=== PATIENT | female | born 1965 | race Caucasian/White ===

== ENCOUNTER → 2016-12-16 | Outpatient (CLI) | payer OTHER ==
[~2016-12-16] MED LIST: ALBU0.5N2 NEB; ATV/1 PO; CARI350T27 PO; CLON0.5T3 PO; DICY10CA12 PO; FLUT0.15 NAE; IBUP-1428 PO; METO50TA7 PO; MRLP17X PO; OXYC-106 PO; OXYC1TAB3 PO; PANT40TA PO; RANI300T PO; SIMV40TA2 PO; TPRSR/25 PO
--- NOTE | 2016-12-16 10:59 | DIAGNOSTIC IMAGING REPORT ---
BILATERAL CAROTID DOPPLER STUDY HISTORY: D4,I10,R0789 COMPARISON: None. TECHNIQUE: Real-time, grayscale, and color Doppler sonography of the carotid arteries was performed. Imaging reviewed in the transverse and longitudinal planes. All measurements were calculated based on NASCET criteria. FINDINGS: Antegrade flow is seen in the bilateral vertebral arteries. The brachial pressures are hemodynamically similar. The peak systolic velocity within the right ICA is 58. The right systolic ratio is 0.8. The peak systolic velocity within the left ICA is 63. The left systolic ratio is 0.9. IMPRESSION: No hemodynamically significant stenosis seen within the carotid arteries. Electronically signed by: Shen Torres M.D. 12/16/2016 10:57 AM Dictated Date/Time: 12/16/2016 10:54 AM
== END | disposition home or self-care (01) ==
LOC: C.ULTR 09:43
DX: I10 Essential (primary) hypertension (principal); R07.89 Other chest pain

== ENCOUNTER 2016-12-31 17:59 | Emergency (ER) | payer OTHER ==
[~2016-12-31] VITALS: Ht 160 cm; Wt 71.5 kg
[~2016-12-31 17:59] MED LIST changes: -METO50TA7 PO; -OXYC1TAB3 PO
[2016-12-31 18:03] VITALS: TEMP 36.9; Ht 160 cm; Wt 71.5 kg
[2016-12-31] MEDS ORDERED: LORAZEPAM 1 MG TAB SL STA (18:16)
[2016-12-31] MEDS ORDERED: ONDANSETRON INJ 2 MG/ML 2 ML VIAL IV STA (18:16)
[2016-12-31] MEDS ORDERED: SODIUM CHLORIDE 0.9% 1000ML 1,000 ML IV ONE (18:16)
[2016-12-31] MEDS ORDERED: SODIUM CHLORIDE 0.9% 1000ML 1,000 ML IV STA (18:16)
--- NOTE | 2016-12-31 18:21 | EMERGENCY ROOM VISIT NOTE ---
History Report prepared by Damian: Aurelia Durán Under the Supervision of: Dr. Moises Tang M.D. First contact with patient: 18:08 Chief Complaint: ABDOMINAL PAIN Stated Complaint: ABD PAIN,DIARRHEA Nursing Triage Summary: Pt c/o anxiety attack, cramping in stomach, back pain (chronic). N/V/D Began two days. History of Present Illness The patient is a 51 year old female who presents to the Emergency Room with complaints of constant abdominal cramping beginning 2 days ago. The patient states that she has had 4 episodes of diarrhea today that is runny, cough, dryness, nausea, vomiting, and anxiety from her symptoms. She denies any bloody stools, black stools, recent antibiotics or travel, and new urinary symptoms. The patient reports that her granddaughter is throwing up. She notes that she tried drinking Pedialyte. She states that she had a hernia and gallbladder removed previously and states that she has a history of an irregular heartbeat. She's also had some back pain in her lower to thoracic back. She says she strained it. No change in bowel or bladder function or numbness or weakness acutely. Source of History: patient Onset: 2 days ago Position: abdomen Quality: cramping Timing: constant Associated Symptoms: + diarrhea, + nausea, + vomiting, No urinary symptoms Note: The patient states dryness, and anxiety from her symptoms. She denies any bloody stools, black stools, recent antibiotics or travel. Review of Systems See HPI for pertinent positives & negatives. A total of 10 systems reviewed and were otherwise negative. Past Medical & Surgical Medical Problems: (1) Anxiety (2) ASTHMA, UNSPECIFIED (3) Chronic anxiety (4) ESOPHAGEAL REFLUX (5) Tachycardia Old medical records were reviewed. Nurse's notes were reviewed and I agree with. Family History FH: heart disease FHx: cancer Hypertension Social History Smoking Status: Former Smoker Alcohol Use: none Drug Use: none Marital Status: single Housing Status: lives with family Occupation Status: disabled Current/Historical Medications Scheduled Metoprolol Succ (Toprol Xl) (Toprol-Xl), 25 MG PO DAILY Pantoprazole (Protonix), 40 MG PO DAILY Ranitidine Hcl (Zantac), 300 MG PO HS Simvastatin (Zocor), 40 MG PO QPM Scheduled PRN Carisoprodol (Soma), 350 MG PO QID PRN for Pain Ibuprofen (Motrin), 800 MG PO BID PRN for Pain Oxycodone Immediate Rel Tab (Roxicodone Ir), 1-2 TAB PO Q4H PRN for Severe Pain Oxycodone/Acetaminophen 10MG/325MG (Percocet 10MG/325MG), 1 TAB PO TID PRN for Pain Allergies Coded Allergies: No Known Allergies (Unverified , 12/31/16) Physical Exam Vital Signs Date Time Temp Pulse Resp B/P Pulse Ox O2 Delivery O2 Flow Rate FiO2 12/31/16 20:36 64 20 136/83 96 Room Air 12/31/16 19:30 68 20 157/68 96 Room Air 12/31/16 18:03 36.9 67 22 181/82 94 Room Air Physical Exam General: Mildly ill appearing middle aged female, occasionally dry cough. HEENT: Normal cephalic atraumatic. Pupils are equal round and reactive to light. Extraocular movements are intact. Oropharynx is pink with moist mucous membranes. No swelling of the mouth lips or tongue. Neck: Supple with a midline trachea. No meningeal signs or stiffness, no JVD or bruits. No Stridor. Chest: Clear to auscultation bilaterally. No wheezes or rhonchi. No increased work of breathing. Heart: regular rate and rhythm. Abdomen: Nondistended without rebound guarding or rigidity. Minimally diffusely tender non-focal, no peritonitis. Extremities: No cyanosis clubbing or edema. No calf tenderness or assymetry Spine/Back. Non tender to palpation. No CVA tenderness Skin: Good turgor without rashes. Neurologic exam: Cranial nerves two through 12 are intact. Motor and sensation are intact and symmetrical throughout. Medical Decision & Procedures ER Provider Diagnostic Interpretation: X-ray results as stated below per interpretation by me and the radiologist: CHEST ONE VIEW PORTABLE FINDINGS: The cardiac and mediastinal contours are normal. There is no evidence of focal pulmonary consolidation. There is no evidence of failure. No pleural effusions are visualized.[ IMPRESSION: No active disease in the chest. Electronically signed by: Moris Ross M.D. 12/31/2016 7:16 PM Dictated Date/Time: 12/31/2016 7:16 PM Laboratory Results 12/31/16 18:40 Red Blood Count 4.33, Mean Corpuscular Volume 87.8, Mean Corpuscular Hemoglobin 30.0, Mean Corpuscular Hemoglobin Concent 34.2, Mean Platelet Volume 8.9, Neutrophils (%) (Auto) 58.8, Lymphocytes (%) (Auto) 32.3, Monocytes (%) (Auto) 8.0, Eosinophils (%) (Auto) 0.5, Basophils (%) (Auto) 0.2, Neutrophils # (Auto) 5.00, Lymphocytes # (Auto) 2.75, Monocytes # (Auto) 0.68, Eosinophils # (Auto) 0.04, Basophils # (Auto) 0.02 12/31/16 18:40 Test 12/31/16 18:40 12/31/16 18:43 White Blood Count 8.51 K/uL (4.8-10.8) Red Blood Count 4.33 M/uL (4.2-5.4) Hemoglobin 13.0 g/dL (12.0-16.0) Hematocrit 38.0 % (37-47) Mean Corpuscular Volume 87.8 fL (80-100) Mean Corpuscular Hemoglobin 30.0 pg (25-34) Mean Corpuscular Hemoglobin Concent 34.2 g/dl (32-36) Platelet Count 246 K/uL (130-400) Mean Platelet Volume 8.9 fL (7.4-10.4) Neutrophils (%) (Auto) 58.8 % Lymphocytes (%) (Auto) 32.3 % Monocytes (%) (Auto) 8.0 % Eosinophils (%) (Auto) 0.5 % Basophils (%) (Auto) 0.2 % Neutrophils # (Auto) 5.00 K/uL (1.4-6.5) Lymphocytes # (Auto) 2.75 K/uL (1.2-3.4) Monocytes # (Auto) 0.68 K/uL (0.11-0.59) Eosinophils # (Auto) 0.04 K/uL (0-0.5) Basophils # (Auto) 0.02 K/uL (0-0.2) RDW Standard Deviation 44.2 fL (36.4-46.3) RDW Coefficient of Variation 13.8 % (11.5-14.5) Immature Granulocyte % (Auto) 0.2 % Immature Granulocyte # (Auto) 0.02 K/uL (0.00-0.02) Anion Gap 11.0 mmol/L (3-11) Est Creatinine Clear Calc Drug Dose 80.0 ml/min Estimated GFR () 101.3 Estimated GFR (Non- 87.4 BUN/Creatinine Ratio 9.7 (10-20) Calcium Level 8.9 mg/dl (8.5-10.1) Total Bilirubin 0.2 mg/dl (0.2-1) Direct Bilirubin < 0.1 mg/dl (0-0.2) Aspartate Amino Transf (AST/SGOT) 12 U/L (15-37) Alanine Aminotransferase (ALT/SGPT) 29 U/L (12-78) Alkaline Phosphatase 111 U/L (45-117) Total Protein 7.1 gm/dl (6.4-8.2) Albumin 3.5 gm/dl (3.4-5.0) Lipase 338 U/L (73-393) Human Chorionic Gonadotropin, Qual NEG (NEG) Bedside Troponin I 0.000 ng/ml (0-0.045) Laboratory studies as stated above per my review. Medications Administered Medications (Trade) Dose Ordered Sig/Cordelia Route Start Time Stop Time Status Last Admin Dose Admin Sodium Chloride 1,000 ml @ 999 mls/hr Q1H1M STAT IV 12/31/16 18:16 12/31/16 19:16 DC 12/31/16 18:42 999 MLS/HR Sodium Chloride (Nss 1000ml) 1,000 ml @ 200 mls/hr Q5H ONCE IV 12/31/16 18:16 12/31/16 21:24 DC 12/31/16 18:42 200 MLS/HR Ondansetron HCl (Zofran Inj) 4 mg NOW STAT IV 12/31/16 18:16 12/31/16 18:19 DC 12/31/16 18:42 4 MG Lorazepam (Ativan Tab) 1 mg NOW STAT SL 12/31/16 18:16 12/31/16 18:19 DC 12/31/16 18:42 1 MG Ketorolac Tromethamine (Toradol Inj) 30 mg NOW STAT IV 12/31/16 19:26 12/31/16 19:28 DC 12/31/16 19:40 30 MG Oxycodone HCl (Roxicodone Immediate Rel 5MG Home Pack) 1 homepack UD ONCE PO 12/31/16 20:00 12/31/16 20:01 DC 12/31/16 20:33 1 HOMEPACK ECG Indication: other (cardiac history) Rate (beats per minute): 59 Rhythm: sinus bradycardia Findings: no acute ischemic change, no ectopy, other (poor baseline) Comparison ECG Date: 01/06/14 Change: no significant change ED Course 1808: Past medical records reviewed. The patient was evaluated in room B9, and a complete history and physical examination were performed. 1815: Ativan Tab 1mg SL, Zofran Inj 4mg IV, Sodium Chloride 1000 ml @ 200 mls/ hr IV, Sodium Chloride 1000 ml @ 999 mls/hr IV. 1925: Toradol Inj 30mg IV. 1999: Oxycodone HCl 1 homepack PO. 2007: I reevaluated the patient. 2014: Oxycodone HCl 1 homepack PO. 2019: Upon reevaluation, the patient is hemodynamically stable. I discussed the results and treatment plan with the patient. She verbalized agreement of the treatment plan. The patient was discharged home. Medical Decision Differential Diagnoses include diarrhea, dehydration, anxiety, arrhythmia, electrolyte or metabolic abnormality. This patient comes in as described above. She was placed in room B9. She is here for treatment and evaluation of abdominal pain and diarrhea and anxiety. Her abdomen is minimally diffusely tender. She feels she's anxious. She's had no recent travel or antibiotic use. IV access established he was hydrated with IV normal saline. She was given IV Zofran for nausea as well as Ativan by mouth. EKG, chest x-ray ,multiple blood testing was obtained. She was reassessed frequently. She was given Toradol 30 mg IV for pain. She has no fever or white count to suggest infection. She's had no acute electrolyte or metabolic abnormalities. She has nothing to suggest liver, gallbladder, or pancreas disease. EKG and x-ray were unremarkable. She has no neurologic deficits. I think that her symptoms are related to her diarrhea and anxiety and she may have some exacerbation of her back pain. I will give her some pain pills that she can use at home with OxyIR 5 mg, one or 2 pills every 4-6 hours as needed. She was warned that this can make her drowsy -do not take before drinking, driving, working , she should return if numbness, weakness, fever chills, change in bowel or bladder function, any problems concerns. She is happy with plan and discharged home. She should follow up with her doctor on Monday for recheck. Impression Primary Impression: Back pain Additional Impressions: Diarrhea Anxiety Scribe Attestation The scribe's documentation has been prepared under my direction and personally reviewed by me in its entirety. I confirm that the note above accurately reflects all work, treatment, procedures, and medical decision making performed by me. Departure Information Dispostion Home / Self-Care Prescriptions Oxycodone Immediate Rel Tab (ROXICODONE IR) 5 Mg Tab 1-2 TAB PO Q4H Y for Severe Pain, #14 TAB Prov: Moises Tang M.D. 12/31/16 Referrals No Doctor, Assigned (PCP) Forms Call Back Authorization, HOME CARE DOCUMENTATION FORM, IMPORTANT VISIT INFORMATION Patient Instructions My [facility] Additional Instructions Rest. Drink plenty of fluids. May use OxyIR 5 mg, one or 2 pills every 4-6 hours if needed for pain OxyIR may make you drowsy and do not take before drinking, driving, working Do not take OxyIR with any other narcotic/pain medications May use Imodium if needed for diarrhea Return if: Increasing pain, numbness or weakness, worsening of symptoms, fever chills, any problems concerns. Follow-up with your doctor on Monday for recheck. Problem Qualifiers
[2016-12-31] MEDS ORDERED: METO50TA7 PO (18:37)
[2016-12-31 18:49] LABS: BASO % 0.2 %; BASO ABS # 0.02 K/uL (0-0.2); COMPLETE YES; EOS % 0.5 %; IG% 0.2 %; LYMPH % 32.3 %; LYMPH ABS # 2.75 K/uL (1.2-3.4); MEAN CELL VOLUME 87.8 fL (80-100); MEAN CORPUSCULAR HGB CONC 34.2 g/dl (32-36); MEAN PLATELET VOLUME 8.9 fL (7.4-10.4); NEUT % 58.8 %; PLATELET COUNT 246 K/uL (130-400); RED BLOOD COUNT 4.33 M/uL (4.2-5.4); WHITE BLOOD COUNT 8.51 K/uL (4.8-10.8)
[2016-12-31 19:05] LABS: ALT/SGPT 29 U/L (12-78); AST/SGOT 12 U/L (15-37); BLOOD UREA NITROGEN 8 mg/dl (7-18); BUN/CREATININE RATIO 9.7 (10-20); CALCIUM 8.9 mg/dl (8.5-10.1); CARBON DIOXIDE 25 mmol/L (21-32); CHLORIDE 109 mmol/L (98-107); CREATININE 0.78 mg/dl (0.60-1.20); GLUCOSE 96 mg/dl (70-99); POTASSIUM 3.7 mmol/L (3.5-5.1); SODIUM 145 mmol/L (136-145)
[2016-12-31 19:08] LABS: ALKALINE PHOSPHATASE 111 U/L (45-117)
[2016-12-31 19:12] LABS: PREG INTERNAL NEGATIVE QC NEG CLEAR BACKGROUND; PREG INTERNAL POSITIVE QC POS CONTROL LINE
--- NOTE | 2016-12-31 19:17 | DIAGNOSTIC IMAGING REPORT ---
CHEST ONE VIEW PORTABLE CLINICAL HISTORY: Atypical chest pain COMPARISON STUDY: 10/25/2016 FINDINGS: The cardiac and mediastinal contours are normal. There is no evidence of focal pulmonary consolidation. There is no evidence of failure. No pleural effusions are visualized.[ IMPRESSION: No active disease in the chest. Electronically signed by: Moris Ross M.D. 12/31/2016 7:16 PM Dictated Date/Time: 12/31/2016 7:16 PM
[2016-12-31] MEDS ORDERED: KETOROLAC TROMETHAMINE 30 MG/ML VIAL IV STA (19:26)
[2016-12-31] MEDS ORDERED: OXYCODONE IR HOME PACK PO ONE ×2 (20:00→20:15)
[2016-12-31] MEDS ORDERED: OXYC1TAB3 PO (20:01)
[2016-12-31 20:36] VITALS: BP 136/83; PULSE 64; O2SAT 96
== END 2016-12-31 20:48 | disposition home or self-care (01) ==
LOC: C.EDB 18:01
DX: M54.9 Dorsalgia, unspecified (principal); R19.7 Diarrhea, unspecified; F41.9 Anxiety disorder, unspecified; J45.909 Unspecified asthma, uncomplicated; K21.9 Gastro-esophageal reflux disease without esophagitis; R00.0 Tachycardia, unspecified; Z87.891 Personal history of nicotine dependence; Z82.49 Family history of ischemic heart disease and other diseases of the circulatory system; Z80.9 Family history of malignant neoplasm, unspecified; Z79.899 Other long term (current) drug therapy

== ENCOUNTER 2017-01-29 09:32 | Emergency (ER) | payer OTHER ==
[~2017-01-29 09:32] MED LIST changes: -ALBU0.5N2 NEB; -ATV/1 PO; -CLON0.5T3 PO; -DICY10CA12 PO; -FLUT0.15 NAE; +METO50TA7 PO; -MRLP17X PO; +OXYC1TAB3 PO; -TPRSR/25 PO
[2017-01-29 09:40] VITALS: TEMP 36.4; Ht 160 cm
[2017-01-29] MEDS ORDERED: SODIUM CHLORIDE 0.9% 1000ML 1,000 ML IV ONE (09:59)
[2017-01-29] MEDS ORDERED: MoRPHine SULFATE 4 MG/ML 1 ML CARP\\VIAL IV STA ×3 (09:59→13:40)
[2017-01-29] MEDS ORDERED: SODIUM CHLORIDE 0.9% 1000ML 1,000 ML IV STA (09:59)
[2017-01-29] MEDS ORDERED: ONDANSETRON INJ 2 MG/ML 2 ML VIAL IV STA ×2 (09:59→14:17)
--- NOTE | 2017-01-29 10:07 | EMERGENCY ROOM VISIT NOTE ---
History Report prepared by Damian: Oralia Lunsford Under the Supervision of: Dr. Moises Tang M.D. First contact with patient: 09:53 Chief Complaint: ABDOMINAL PAIN Stated Complaint: NOT SLEEPING, STOMACH PAIN Nursing Triage Summary: pt here with abd pains, n/v/d. pt states has been going on for a long time. hx of abd adhesions per pt. pt states cannot swallow anything for days History of Present Illness The patient is a 51 year old female who presents to the Emergency Room with complaints of worsening abdominal pain. The patient states that she has had the abdominal pain for a long time. She rates her pain as a 10/10. The patient states that she has not been able to eat or swallow and that she has lost two pounds. She has been drinking water. The patient has had previous abdominal surgeries to remove her gallbladder and adhesions. The patient states that she has a history of anxiety and that she is having increased anxiety due to the abdominal pain. She is having some shortness of breath. She denies fever, urinary symptoms, chest pain. Source of History: patient Onset: chronic Position: abdomen Symptom Intensity: 10/10 Quality: other (abdominal pain) Timing: worsening Associated Symptoms: + SOB, No chest pain, No fevers, No urinary symptoms Note: She is having increased anxiety. Review of Systems See HPI for pertinent positives & negatives. A total of 10 systems reviewed and were otherwise negative. Past Medical & Surgical Medical Problems: (1) Anxiety (2) ASTHMA, UNSPECIFIED (3) Chronic anxiety (4) ESOPHAGEAL REFLUX (5) Tachycardia Old medical records were reviewed. Nurse's notes were reviewed and I agree with. Family History FH: heart disease FHx: cancer Hypertension Social History Smoking Status: Former Smoker Alcohol Use: none Drug Use: none Marital Status: single Housing Status: lives with family Occupation Status: disabled Current/Historical Medications Scheduled Metoprolol Succ (Toprol Xl) (Toprol-Xl), 25 MG PO DAILY Pantoprazole (Protonix), 40 MG PO DAILY Ranitidine Hcl (Zantac), 300 MG PO HS Simvastatin (Zocor), 40 MG PO QPM Scheduled PRN Carisoprodol (Soma), 350 MG PO QID PRN for Pain Ibuprofen (Motrin), 800 MG PO BID PRN for Pain Oxycodone Immediate Rel Tab (Roxicodone Ir), 1-2 TAB PO Q4H PRN for Severe Pain Allergies Coded Allergies: No Known Allergies (Unverified , 01/29/17) Physical Exam Vital Signs Date Time Temp Pulse Resp B/P Pulse Ox O2 Delivery O2 Flow Rate FiO2 01/29/17 14:35 60 16 125/72 99 Room Air 01/29/17 10:38 65 26 137/87 99 Room Air 01/29/17 09:40 36.4 76 16 153/92 98 Room Air Physical Exam General: Anxious appearing middle age female complaining of abdominal pain. HEENT: Normal cephalic atraumatic. Pupils are equal round and reactive to light. Sclerae anicteric. Extraocular movements are intact. Oropharynx is pink with moist mucous membranes. No swelling of the mouth lips or tongue. Neck: Supple with a midline trachea. No meningeal signs or stiffness, no JVD or bruits. No Stridor. Chest: Clear to auscultation bilaterally. No wheezes or rhonchi. No increased work of breathing. Heart: regular rate and rhythm. Abdomen: Soft, minimally diffusely tender, nondistended without rebound guarding or rigidity. Extremities: No cyanosis clubbing or edema. No calf tenderness or assymetry Spine/Back. Non tender to palpation. No CVA tenderness Skin: Good turgor without rashes. Neurologic exam: Cranial nerves two through 12 are intact. Motor and sensation are intact and symmetrical throughout. Medical Decision & Procedures ER Provider Diagnostic Interpretation: CT results as stated below per my review and radiologist interpretation: CT OF THE ABDOMEN AND PELVIS WITH CONTRAST CLINICAL HISTORY: Abdominal pain. COMPARISON STUDY: CT of the abdomen and pelvis April 18, 2013. TECHNIQUE: Following IV administration of 92 mL of Optiray-320, axial images of the abdomen and pelvis were obtained from the lung bases to the proximal femurs. Images were reviewed in the axial, sagittal, and coronal planes. IV contrast was administered without complication. CT DOSE: 405.46 mGy.cm FINDINGS: Fatty infiltration of the liver is noted. Biliary ductal dilatation is unchanged since CT of April 18, 2013 and likely due to prior cholecystectomy. There is no peripancreatic infiltration. The spleen, adrenal glands and kidneys are normal. There is no hydronephrosis. Caliber and wall thickness of small and large bowel are normal. There is a suspected right upper quadrant hernia mesh. The appendix is normal. There is colonic diverticulosis without evidence for acute diverticulitis. Skeletal structures are unremarkable. IMPRESSION: 1. No acute process within the abdomen or pelvis. 2. No change in biliary ductal dilatation since CT of April 18, 2013. This is likely related to prior cholecystectomy but could be correlated with obstructive liver function tests. 3. Fatty liver. 4. Colonic diverticulosis without evidence for acute diverticulitis. Electronically signed by: Geovany Lopez M.D. 01/29/2017 11:24 AM Dictated Date/Time: 01/29/2017 11:17 AM Laboratory Results 01/29/17 09:55 Red Blood Count 4.64, Mean Corpuscular Volume 89.9, Mean Corpuscular Hemoglobin 31.0, Mean Corpuscular Hemoglobin Concent 34.5, Mean Platelet Volume 9.1, Neutrophils (%) (Auto) 73.3, Lymphocytes (%) (Auto) 20.4, Monocytes (%) (Auto) 5.8, Eosinophils (%) (Auto) 0.1, Basophils (%) (Auto) 0.2, Neutrophils # (Auto) 6.95, Lymphocytes # (Auto) 1.93, Monocytes # (Auto) 0.55, Eosinophils # (Auto) 0.01, Basophils # (Auto) 0.02 01/29/17 09:55 Test 01/29/17 09:50 01/29/17 09:55 01/29/17 10:05 Urine Color YELLOW Urine Appearance CLEAR (CLEAR) Urine pH 7.0 (4.5-7.5) Urine Specific [place] 1.004 (1.000-1.030) Urine Protein NEG (NEG) Urine Glucose (UA) NEG (NEG) Urine Ketones NEG (NEG) Urine Occult Blood TRACE (NEG) Urine Nitrite NEG (NEG) Urine Bilirubin NEG (NEG) Urine Urobilinogen NEG (NEG) Urine Leukocyte Esterase LARGE (NEG) Urine WBC (Auto) 10-30 /hpf (0-5) Urine RBC (Auto) 0-4 /hpf (0-4) Urine Hyaline Casts (Auto) 1-5 /lpf (0-5) Urine Epithelial Cells (Auto) 10-20 /lpf (0-5) Urine Bacteria (Auto) 1+ (NEG) Urine Renal Epithelial Cells 10-20 /lpf (0-5) White Blood Count 9.48 K/uL (4.8-10.8) Red Blood Count 4.64 M/uL (4.2-5.4) Hemoglobin 14.4 g/dL (12.0-16.0) Hematocrit 41.7 % (37-47) Mean Corpuscular Volume 89.9 fL (80-100) Mean Corpuscular Hemoglobin 31.0 pg (25-34) Mean Corpuscular Hemoglobin Concent 34.5 g/dl (32-36) Platelet Count 254 K/uL (130-400) Mean Platelet Volume 9.1 fL (7.4-10.4) Neutrophils (%) (Auto) 73.3 % Lymphocytes (%) (Auto) 20.4 % Monocytes (%) (Auto) 5.8 % Eosinophils (%) (Auto) 0.1 % Basophils (%) (Auto) 0.2 % Neutrophils # (Auto) 6.95 K/uL (1.4-6.5) Lymphocytes # (Auto) 1.93 K/uL (1.2-3.4) Monocytes # (Auto) 0.55 K/uL (0.11-0.59) Eosinophils # (Auto) 0.01 K/uL (0-0.5) Basophils # (Auto) 0.02 K/uL (0-0.2) RDW Standard Deviation 44.2 fL (36.4-46.3) RDW Coefficient of Variation 13.4 % (11.5-14.5) Immature Granulocyte % (Auto) 0.2 % Immature Granulocyte # (Auto) 0.02 K/uL (0.00-0.02) Anion Gap 11.0 mmol/L (3-11) Estimated GFR () 77.8 Estimated GFR (Non- 67.2 BUN/Creatinine Ratio 8.3 (10-20) Calcium Level 9.0 mg/dl (8.5-10.1) Total Bilirubin 0.3 mg/dl (0.2-1) Direct Bilirubin < 0.1 mg/dl (0-0.2) Aspartate Amino Transf (AST/SGOT) 22 U/L (15-37) Alanine Aminotransferase (ALT/SGPT) 30 U/L (12-78) Alkaline Phosphatase 124 U/L (45-117) Total Protein 7.9 gm/dl (6.4-8.2) Albumin 3.9 gm/dl (3.4-5.0) Lipase 236 U/L (73-393) Bedside Troponin I 0.000 ng/ml (0-0.045) Date/Time Source Procedure Growth Status 01/29/17 09:50 Stool C.difficile Toxin B Gene (PCR) - Final No C. difficile toxin B gene detected Complete Laboratory studies as stated above per my review. Medications Administered Medications (Trade) Dose Ordered Sig/[place] Route Start Time Stop Time Status Last Admin Dose Admin Sodium Chloride 1,000 ml @ 999 mls/hr Q1H1M STAT IV 01/29/17 09:59 01/29/17 10:59 DC 01/29/17 10:08 999 MLS/HR Sodium Chloride (Nss 1000ml) 1,000 ml @ 150 mls/hr Q6H40M ONCE IV 01/29/17 09:59 01/29/17 16:38 01/29/17 10:35 150 MLS/HR Morphine Sulfate (MoRPHine SULFATE INJ) 4 mg NOW STAT IV 01/29/17 09:59 01/29/17 10:01 DC 01/29/17 10:08 4 MG Ondansetron HCl (Zofran Inj) 4 mg NOW STAT IV 01/29/17 09:59 01/29/17 10:01 DC 01/29/17 10:08 4 MG Lorazepam (Ativan Tab) 1 mg NOW STAT SL 01/29/17 10:50 01/29/17 10:51 DC 01/29/17 10:53 1 MG Morphine Sulfate (MoRPHine SULFATE INJ) 4 mg NOW STAT IV 01/29/17 12:11 01/29/17 12:12 DC 01/29/17 12:50 4 MG Morphine Sulfate (MoRPHine SULFATE INJ) 4 mg NOW STAT IV 01/29/17 13:40 01/29/17 13:42 DC 01/29/17 14:28 4 MG Ondansetron HCl (Zofran Inj) 4 mg NOW STAT IV 01/29/17 14:17 01/29/17 14:18 DC 01/29/17 14:27 4 MG Ondansetron HCl (ZOFRAN ODT 4MG Home Pack) 1 homepack UD ONCE PO 01/29/17 14:45 01/29/17 14:46 DC 01/29/17 14:53 1 HOMEPACK ECG Indication: abdominal pain Rate (beats per minute): 64 Rhythm: normal sinus Findings: no acute ischemic change, other (LVH) Comparison ECG Date: 12/31/2016 Change: no significant change ED Course 0955: Past medical records reviewed. The patient was evaluated in room B2, and a complete history and physical examination were performed. 0959: Zofran 4 mg IV, Morphine Sulfate 4 mg IV, Sodium Chloride 1000 ml @ 150 mls/hr IV, Sodium Chloride 1000 ml @ 999 mls/hr IV 1048: I reevaluated the patient. She states that she ran out of Ativan several days ago. She still feels anxious. 1050: Ativan tab 1 mg SL 1211: Morphine Sulfate 4 mg IV 1340: Morphine Sulfate 4 mg IV 1343: I reevaluated the patient. She is feeling better and has an appointment with her doctor tomorrow. I discussed the results and treatment plan with the patient. She verbalized agreement of the treatment plan. The patient was discharged home. 1416: Per nursing staff, the patient would like something more for nausea. 1417: Zofran 4 mg IV Medical Decision Differentials include, but are not limited to; Anxiety, bowel obstruction, adhesion, electrolyte or metabolic abnormality, cardiac disease, infection. This patient comes in as described above. She has had abdominal pain as well as nausea vomiting diarrhea. These symptoms all been on going on chronically. She is also very anxious. She takes chronic OxyIR and lorazepam. IV access was established and she was hydrated with IV normal saline. Multiple blood testing was obtained. She's had no fever or white count to suggest infection. She's had no acute electrode or metabolic abnormalities. She has nothing to suggest acute liver, gallbladder, or pancreas disease. She has nothing to suggest cardiac disease. EKG was unremarkable. CAT scan of her abdomen was unremarkable. I have reinterviewed the prescription drug monitoring program and she does receive mildly prescriptions of oxycodone and lorazepam for her regular doctor . she is actually seeing her doctor tomorrow. She was given IV morphine for pain here and was feeling better she was also given IV Zofran for nausea. She will be sent home with a Zofran home pack. She will not get any narcotics to go home from here, she needs to get these from her regular doctor. Her symptoms have been going on for a while and she may benefit from a GI consultation or upper GI scoping. She will be discharged to home. She should return if: increasing pain, fever or chills, worsening of symptoms, any new problems or concerns [place] Drug [place] Program Search Results: patient reviewed within database Drug Monitoring Findings: The patient's prescriptions of oxycodone and Ativan are refilled on the of each month. Impression Primary Impression: Central abdominal pain Additional Impression: Nausea vomiting and diarrhea Scribe Attestation The scribe's documentation has been prepared under my direction and personally reviewed by me in its entirety. I confirm that the note above accurately reflects all work, treatment, procedures, and medical decision making performed by me. Departure Information Dispostion Home / Self-Care Referrals Lorna Dill.Elisha PA-C (PCP) Forms Call Back Authorization, HOME CARE DOCUMENTATION FORM, IMPORTANT VISIT INFORMATION Patient Instructions My [facility] Additional Instructions Rest. Drink plenty of fluids. Mild diet. Keep your appointment with your doctor tomorrow Return if: Increasing pain, worsening of symptoms, fever or chills, any new problems or concerns Problem Qualifiers
[2017-01-29 10:15] LABS: BASO % 0.2 %; BASO ABS # 0.02 K/uL (0-0.2); COMPLETE YES; EOS % 0.1 %; HEMATOCRIT 41.7 % (37-47); IG% 0.2 %; LYMPH % 20.4 %; LYMPH ABS # 1.93 K/uL (1.2-3.4); MEAN CELL VOLUME 89.9 fL (80-100); MEAN CORPUSCULAR HGB CONC 34.5 g/dl (32-36); MEAN PLATELET VOLUME 9.1 fL (7.4-10.4); MONO % 5.8 %; NEUT % 73.3 %; PLATELET COUNT 254 K/uL (130-400); RED BLOOD COUNT 4.64 M/uL (4.2-5.4); WHITE BLOOD COUNT 9.48 K/uL (4.8-10.8)
[2017-01-29] MEDS ORDERED: OPTIRAY 320 IV PRN (10:30)
[2017-01-29 10:33] LABS: BLOOD UREA NITROGEN 8 mg/dl (7-18); BUN/CREATININE RATIO 8.3 (10-20); CARBON DIOXIDE 24 mmol/L (21-32); CHLORIDE 108 mmol/L (98-107); CREATININE 0.97 mg/dl (0.60-1.20); GLUCOSE 123 mg/dl (70-99); POTASSIUM 3.4 mmol/L (3.5-5.1); SODIUM 143 mmol/L (136-145)
[2017-01-29 10:38] LABS: URINE APPEARANCE CLEAR (CLEAR); URINE BILIRUBIN NEG (NEG); URINE COLOR YELLOW; URINE NITRITE NEG (NEG); URINE SPECIFIC GRAVITY 1.004 (1.000-1.030); UROBILINOGEN NEG (NEG)
[2017-01-29 10:42] LABS: ALKALINE PHOSPHATASE 124 U/L (45-117); ALT/SGPT 30 U/L (12-78); AST/SGOT 22 U/L (15-37)
[2017-01-29 10:43] LABS: MANUAL MICROSCOPIC REQUIRED? NO; REVIEW REQ? YES
[2017-01-29] MEDS ORDERED: LORAZEPAM 1 MG TAB SL STA (10:50)
--- NOTE | 2017-01-29 11:25 | DIAGNOSTIC IMAGING REPORT ---
CT OF THE ABDOMEN AND PELVIS WITH CONTRAST CLINICAL HISTORY: Abdominal pain. COMPARISON STUDY: CT of the abdomen and pelvis April 18, 2013. TECHNIQUE: Following IV administration of 92 mL of Optiray-320, axial images of the abdomen and pelvis were obtained from the lung bases to the proximal femurs. Images were reviewed in the axial, sagittal, and coronal planes. IV contrast was administered without complication. CT DOSE: 405.46 mGy.cm FINDINGS: Fatty infiltration of the liver is noted. Biliary ductal dilatation is unchanged since CT of April 18, 2013 and likely due to prior cholecystectomy. There is no peripancreatic infiltration. The spleen, adrenal glands and kidneys are normal. There is no hydronephrosis. Caliber and wall thickness of small and large bowel are normal. There is a suspected right upper quadrant hernia mesh. The appendix is normal. There is colonic diverticulosis without evidence for acute diverticulitis. Skeletal structures are unremarkable. IMPRESSION: 1. No acute process within the abdomen or pelvis. 2. No change in biliary ductal dilatation since CT of April 18, 2013. This is likely related to prior cholecystectomy but could be correlated with obstructive liver function tests. 3. Fatty liver. 4. Colonic diverticulosis without evidence for acute diverticulitis. Electronically signed by: Geovany Lopez M.D. 01/29/2017 11:24 AM Dictated Date/Time: 01/29/2017 11:17 AM
[2017-01-29 14:35] VITALS: BP 125/72; PULSE 60; O2SAT 99
[2017-01-29] MEDS ORDERED: ONDANSETRON HOME PACK 4MG OD TAB PO ONE (14:45)
--- NOTE | 2017-01-31 16:24 | Pharmacy Progress Note ---
ED Pharmacist Culture FollowUp Date of Service: Jan 31, 2017. Lactobacillus growing from the patient's urine culture. Patient denied urinary symptoms. UA with moderate amount of epithelial cells. Lactobacillus likely a contaminant - no intervention required.
== END 2017-01-29 15:02 | disposition home or self-care (01) ==
LOC: C.EDB 09:33
DX: R10.9 Unspecified abdominal pain (principal); R11.2 Nausea with vomiting, unspecified; R19.7 Diarrhea, unspecified; F41.9 Anxiety disorder, unspecified; K21.9 Gastro-esophageal reflux disease without esophagitis; Z87.891 Personal history of nicotine dependence; Z79.899 Other long term (current) drug therapy; Z82.49 Family history of ischemic heart disease and other diseases of the circulatory system; Z80.9 Family history of malignant neoplasm, unspecified

== ENCOUNTER → 2017-02-09 | Outpatient (CLI) | payer OTHER ==
[~2017-02-09] MED LIST changes: -OXYC-106 PO
[2017-02-09 15:35] LABS: HEMATOCRIT 39.2 % (37-47); MEAN CELL VOLUME 89.5 fL (80-100); MEAN CORPUSCULAR HEMOGLOBIN 31.1 pg (25-34); MEAN CORPUSCULAR HGB CONC 34.7 g/dl (32-36); MEAN PLATELET VOLUME 9.2 fL (7.4-10.4); PLATELET COUNT 281 K/uL (130-400); RED BLOOD COUNT 4.38 M/uL (4.2-5.4); WHITE BLOOD COUNT 8.87 K/uL (4.8-10.8)
[2017-02-09 16:12] LABS: ALT/SGPT 33 U/L (12-78); AST/SGOT 17 U/L (15-37); BLOOD UREA NITROGEN 11 mg/dl (7-18); BUN/CREATININE RATIO 13.6 (10-20); CARBON DIOXIDE 25 mmol/L (21-32); CHLORIDE 107 mmol/L (98-107); GLUCOSE 92 mg/dl (70-99); POTASSIUM 3.9 mmol/L (3.5-5.1); SODIUM 142 mmol/L (136-145); TRIGLYCERIDES 231 mg/dl (0-150); VERY LOW DENSITY LIPOPROT CALC 46 mg/dl
[2017-02-09 16:20] LABS: ALKALINE PHOSPHATASE 121 U/L (45-117); CHOLESTEROL 202 mg/dl (0-200); CHOLESTEROL/HDL RATIO 3.5; HDL CHOLESTEROL 57 mg/dl; LDL CHOLESTEROL CALCULATED 99 mg/dl
[2017-02-10 06:18] LABS: ESTIMATED AVERAGE GLUCOSE 108 mg/dl
[2017-02-13 11:05] LABS: HA1C FLAG Variant Hgb (Normal)
== END | disposition home or self-care (01) ==
LOC: C.LAB1850 14:07
PROVIDERS: ATTEND Physician Assistant
DX: K20.9 Esophagitis, unspecified (principal); G44.201 Tension-type headache, unspecified, intractable; R73.01 Impaired fasting glucose; E66.9 Obesity, unspecified

== ENCOUNTER → 2017-02-15 | Outpatient (CLI) | payer OTHER ==
--- NOTE | 2017-02-15 11:49 | DIAGNOSTIC IMAGING REPORT ---
UPPER GI SERIES AND SMALL BOWEL FOLLOW-THROUGH CLINICAL HISTORY: Epigastric pain and vomiting. Acid reflux disease. COMPARISON STUDY: CT of the abdomen and pelvis January 29, 2017 and upper GI series and barium swallow March 14, 2014. FLUOROSCOPY TIME: 2.5 minutes. FINDINGS: 35 fluoroscopic images were obtained. Esophageal motility was normal. No esophageal mass or stricture was identified. There was no gastroesophageal reflux elicited on this exam. Gastric fold pattern was normal. Duodenum was unremarkable. Jejunal and ileal fold patterns were normal. There is no evidence for a small bowel obstruction. Transit time to the cecum was normal at 50 minutes. Terminal ileum was normal. There is left colon diverticulosis. IMPRESSION: Unremarkable upper GI series and small bowel follow-through. Electronically signed by: Geovany Lopez M.D. 02/15/2017 11:47 AM Dictated Date/Time: 02/15/2017 11:45 AM
== END | disposition home or self-care (01) ==
LOC: C.RAD 09:21
PROVIDERS: ATTEND Registered Nurse
DX: R14.0 Abdominal distension (gaseous) (principal); R10.9 Unspecified abdominal pain; K21.9 Gastro-esophageal reflux disease without esophagitis; R11.2 Nausea with vomiting, unspecified

== ENCOUNTER → 2017-05-02 | Outpatient (CLI) | payer OTHER ==
--- NOTE | 2017-05-02 15:57 | DIAGNOSTIC IMAGING REPORT ---
L-SPINE MIN 4 VIEWS ROUTINE CLINICAL HISTORY: Lower back pain. COMPARISON: Lumbar spine radiographs August 16, 2016. FINDINGS: Interval note is made of cholecystectomy clips. No acute fracture is identified. Mild multilevel degenerative disc disease and facet arthrosis is noted. There is no suspicious osseous lesion. IMPRESSION: 1. No acute fracture. 2. Mild multilevel degenerative disc disease. Electronically signed by: Geovany Lopez M.D. 05/02/2017 3:56 PM Dictated Date/Time: 05/02/2017 3:53 PM
== END | disposition home or self-care (01) ==
LOC: C.RAD 13:55
DX: M54.9 Dorsalgia, unspecified (principal)

== ENCOUNTER → 2017-06-27 | Outpatient (CLI) | payer OTHER ==
--- NOTE | 2017-06-27 13:52 | DIAGNOSTIC IMAGING REPORT ---
MRI OF THE LUMBAR SPINE WITHOUT IV CONTRAST CLINICAL HISTORY: Low back pain. COMPARISON STUDY: Radiographs of the lumbar spine dated 05/02/2017. Abdominal CT dated 01/29/2017. MRI of the lumbar spine dated 09/20/2012. TECHNIQUE: MRI of the lumbar spine is performed utilizing various T1 and T2-weighted sequences in the axial and sagittal planes. IV contrast was not administered for this examination. Lumbar spine: A hemitransitional lumbosacral segment will be labeled as S1 for the purposes of this examination. Vertebral body height and alignment are maintained throughout the lumbar spine. There is mild straightening of the lumbar lordosis. There is no evidence of spondylolysis. The transverse and spinous processes appear intact. No destructive bony lesion is seen. Intervertebral discs: Mild degenerative disc desiccation is seen throughout the lumbar spine. Mild loss of height is seen at L4-L5. The remaining disc spaces appear preserved. Spinal cord: The visualized spinal cord is normal in morphology and signal intensity. The conus medullaris terminates at the level of L1. The nerve roots of the cauda equina are normal in morphology. L1-L2: Unremarkable. L2-L3: Unremarkable. L3-L4: There is minimal disc bulge. The central canal and neural foramina are widely patent. L4-L5: There is a small disc bulge. There is no significant acquired compromise of the central canal or neural foramina. L5-S1: There is a small posterior disc bulge and annular fissure. The central canal and neural foramina are widely patent. Mild facet arthropathy is of no consequence. S1-S2: The central canal and neural foramina are widely patent. IMPRESSION: 1. There is no disc herniation, significant central canal stenosis, or neural foraminal narrowing seen throughout the lumbosacral spine. 2. Mild degenerative disc disease as above. This is similar to the 2012 examination. 3. No destructive bony lesion is identified. Dictated: 06/27/2017 1:25 PM Transcribed: 06/27/2017 1:52 PM ALEX_Brenna Electronically signed by: Prashanth Soler M.D. 06/27/2017 1:58 PM Dictated Date/Time: 06/27/2017 1:25 PM
[2017-06-27 14:25] LABS: HEMATOCRIT 38.4 % (37-47); MEAN CELL VOLUME 86.9 fL (80-100); MEAN CORPUSCULAR HEMOGLOBIN 30.1 pg (25-34); MEAN CORPUSCULAR HGB CONC 34.6 g/dl (32-36); MEAN PLATELET VOLUME 9.2 fL (7.4-10.4); PLATELET COUNT 259 K/uL (130-400); RED BLOOD COUNT 4.42 M/uL (4.2-5.4); WHITE BLOOD COUNT 9.88 K/uL (4.8-10.8)
[2017-06-27 14:58] LABS: ALB/GLOB RATIO 0.9 (0.9-2); ALT/SGPT 30 U/L (12-78); AST/SGOT 17 U/L (15-37); BLOOD UREA NITROGEN 15 mg/dl (7-18); BUN/CREATININE RATIO 17.6 (10-20); CALCIUM 8.9 mg/dl (8.5-10.1); CARBON DIOXIDE 26 mmol/L (21-32); CHLORIDE 107 mmol/L (98-107); CREATININE 0.86 mg/dl (0.60-1.20); GLUCOSE 84 mg/dl (70-99); POTASSIUM 3.8 mmol/L (3.5-5.1); SODIUM 139 mmol/L (136-145)
[2017-06-27 15:09] LABS: ALKALINE PHOSPHATASE 143 U/L (45-117)
== END | disposition home or self-care (01) ==
LOC: C.MRI 12:39
DX: M54.5 Low back pain (principal); M62.40 Contracture of muscle, unspecified site; K20.9 Esophagitis, unspecified; I10 Essential (primary) hypertension; R73.01 Impaired fasting glucose; E78.5 Hyperlipidemia, unspecified; R53.83 Other fatigue

== ENCOUNTER → 2017-07-20 | Outpatient (CLI) | payer OTHER ==
[~2017-07-20] MED LIST changes: -OXYC1TAB3 PO
[2017-07-20 17:11] LABS: CHOLESTEROL/HDL RATIO 3.8
== END | disposition home or self-care (01) ==
LOC: C.LAB 15:24
PROVIDERS: ATTEND Physician Assistant
DX: E78.00 Pure hypercholesterolemia, unspecified (principal)

== ENCOUNTER → 2017-08-04 | Outpatient (CLI) | payer OTHER ==
--- NOTE | 2017-08-04 11:12 | DIAGNOSTIC IMAGING REPORT ---
SHOULDER MIN 2 VIEWS ROUTINE CLINICAL HISTORY: G89.4,CHRONIC PAIN SYNDROME COMPARISON: 01/28/2015 DISCUSSION: No fractures or dislocations are visualized. There are no visible periarticular calcifications. There are minor degenerative changes within the AC joint. IMPRESSION: Mild degenerative changes within the AC joint. Otherwise unremarkable conventional radiographic evaluation of the left shoulder. Electronically signed by: Moris Ross M.D. 08/04/2017 11:11 AM Dictated Date/Time: 08/04/2017 11:10 AM
== END | disposition home or self-care (01) ==
LOC: C.RAD 10:26
PROVIDERS: ATTEND Physician Assistant
DX: G89.4 Chronic pain syndrome (principal)

== ENCOUNTER 2020-11-05 20:27 | Inpatient (IN) ==
--- OUTSIDE RECORDS SUMMARY | 2020-11-05 20:30 | External Medical Summary | Continuity of Care Document ---
:1965 Author Name Delores Chamberlain, Provider Address Unavailable Unavailable , Care Team Providers Name Role Phone Lesa Vela Unavailable [email or web address] Unavailable Unavailable Unavailable Unavailable Unavailable Problems Nausea with vomiting, unspecified (787.01) (R11.2) Abdominal pain (789.00) (R10.9) Abdominal bloating (787.3) (R14.0) Acid reflux disease (530.81) (K21.9) High cholesterol (272.0) (E78.00) Arthritis (716.90) (M19.90) Hypertrophy of breast (611.1) (N62) Panic attacks (300.01) (F41.0) Anxiety (300.00) (F41.9) Tachycardia (785.0) (R00.0) Asthma (493.90) (J45.909) Alternating constipation and diarrhea (787.99) (R19.8) Dysphagia (787.20) (R13.10) Gastritis (535.50) (K29.70) Allergies and Adverse Reactions CeleXA TABS (Allergy) PROzac TABS (Allergy) Medications Soma TABS; TAKE 325MG 3 TIMES DAILY Refills: 0 Ativan 1 MG Oral Tablet Refills: 0 KlonoPIN 0.5 MG Oral Tablet; TAKE 1 TABLET AT BEDTIME NEE DED. Refills: 0 Percocet 10-325 MG Oral Tablet; TAKE 1 T ABLET EVERY 4 TO 6 HOURS NEEDED FOR PAIN. Refills: 0 Pantoprazole Sodium 40 MG Oral Tablet De layed Release; take 1 tablet twice a day (ONE WITH BREAKFAST AND DINNER) KATINA Landrum Start: 24-Apr-2017 Quantity: 60 Refills: 2 Zantac 300 MG TABS; TAKE 1 TABLET DAILY AT BEDTIME Refills: 0 Toprol XL 25 MG Oral Tablet Extended Release 24 Hour; TAKE 1 TABLET DAILY. Refills: 0 Ibuprofen 800 MG Oral Tablet; TAKE 1 TABLET TWICE DAILY N EEDED. Refills: 0 Imitrex 50 MG Oral Tablet; TAKE 1 TABLET DAILY NEEDED Refills: 0 Flonase SUSP Refills: 0 Ondansetron HCl - 4 MG Oral Tablet; TAKE 1 TABLET Ever y 8 hours PRN Nausea KATINA Landrum Start: 09-Feb-2017 Quantity: 30 Refills: 1 Xopenex 1.25 MG/3ML Inhalation Nebulization Solution Start: 03-Feb-2017 Refills: 0 Bentyl 10 MG CAPS Start: 03-Feb-2017 Refills: 0 Zocor 40 MG Oral Tablet Start: 04-Feb-20 Refills: 0 Ipratropium-Albuterol 0.5-2.5 (3) MG/3ML Inhalation Solution Start: 03-Feb-2017 Refills: 0 Polyethylene Glycol 3350 17 GM/SCOOP Ora l Powder; MIX 17 GM IN 8 OUNCES OF LIQUID AND DRINK 1 TO 2 TIMES DAILY FOR CONSTIPATION. KATINA Landrum Start: 19-May-2016 Quantity: 2 510 GM Bottle Refills: 4 Procedures History of Neuroplasty Decompression Median Nerve Status: Completed At Carpal Tunnel History of Knee Surgery Status: Complete d History of Cholecystectomy Status: Compl eted History of Tubal Ligation Status: Comple zoey History of Elbow Surgery Status: Complet ed History of Diagnostic Esophagogastroduodenoscopy Status: Completed History of Complete Colonoscopy Status: Completed History of Nose Surgery Status: Complete d History of Ventral Hernia Repair Status: Completed 08-Oct-2012 0:00 Immunizations Immunizations not documented Family History Father Family history of hypertension (V17.49) (Z82.49) Status: Act kody Mother Family history of malignant neoplasm (V16.9) (Z80.9) Status: Active Family history of cardiac disorder (V17.49) (Z82.49) Status: Active Social History - Smoking Status Ex-smoker Plan of Treatment Planned Observations Planned Goals not documented Results No Known Results Results not documented
[2020-11-05] MEDS ORDERED: ACETAMINOPHEN 1,000 MG/100 ML VIAL IV STA (20:45)
[2020-11-05] MEDS ORDERED: METOCLOPRAMIDE HCL INJ 5 MG/ML 2 ML VIAL IV ONE (20:45)
[2020-11-05] MEDS ORDERED: SODIUM CHLORIDE 0.9% 1000ML 1,000 ML IV ONE (20:45)
[2020-11-05] MEDS ORDERED: DEXAMETHASONE SOD INJ 10 MG/ML VIAL IV ONE (20:45)
[2020-11-05] MEDS ORDERED: diphenhydrAMINE 50 MG/ML VIAL IV STA (20:45)
--- NOTE | 2020-11-05 20:52 | Emergency Department Note ---
History of Present Illness General Chief complaint: Illness Stated complaint: AB PAIN, FEVER, Time Seen by Provider: 11/05/20 20:29 History of Present Illness Provider complaint: Fever difficulty breathing abdominal pain headache chest pain Onset (ago): day(s) 5 Location: head, chest and abdomen Radiation: non-radiation Severity: moderate Quality: + aching Relieved By: + none Exacerbated By: + none Associated symptoms: + chest pain, + cough, + fever/chills, + headaches, + nausea/vomiting, + shortness of breath and + weakness 55-year-old female presents emergency department for headache, abdominal pain, fever, shortness of breath, cough, loss of taste and smell. She states her symptoms have been present for last 5 days. She reports no contact with anyone who is COVID-19 positive or person of interest that she is aware of. Home Medications Medication Instructions Recorded Confirmed Type famotidine 40 mg PO HS 11/05/20 11/05/20 History lorazepam 1 mg PO TID PRN 11/05/20 11/05/20 History metoprolol succinate 25 mg PO DAILY 11/05/20 11/05/20 History pantoprazole 40 mg PO QAM 11/05/20 11/05/20 History prednisone See Rx Instructions .ROUTE .COMPLEX 11/05/20 11/05/20 History sertraline 25 mg PO HS 11/05/20 11/05/20 History Allergies Allergy/AdvReac Type Severity Reaction Status Date / Time No Known Allergies Allergy Unverified 01/29/17 10:17 Past Med/Surg History Medical History (Updated 11/06/20 @ 00:34 by Enzo Richardson) Anxiety Diarrhea No pertinent family history SOB (shortness of breath) Surgical History (Updated 11/05/20 @ 20:50 by Enzo Richardson) No pertinent past surgical history Social History Smoking Status: Former smoker Tobacco Type: Cigarettes Feels Safe at Home: Yes Review of Systems A total of 10 systems reviewed and were otherwise negative Physical Exam Vital Signs Vital Signs - 24 hr 11/05/20 20:32 11/05/20 20:40 11/05/20 20:45 Temperature Temperature Source Pulse Rate 67 70 66 Pulse Rate [Apical] Pulse Rate from SpO2 Sensor Respiratory Rate 19 25 H 17 Respiratory Effort / Characteristics Blood Pressure 144/83 H Blood Pressure [Right Arm] Blood Pressure Mean 117 Blood Pressure Mean [Right Arm] Pulse Oximetry 97 98 98 Oxygen Delivery Method Oxygen Flow Rate 2 2 2 Sepsis Recent Fever Within 48 Hours Sepsis New/Unexplained Change in Mental Status Sepsis Action Taken by Nursing Oxygen Flow Rate - Titration Pulse Oximetry Post Tiitration 11/05/20 21:00 11/05/20 21:01 11/05/20 21:15 Temperature 37.0 C Temperature Source Oral Pulse Rate 77 71 72 Pulse Rate [Apical] Pulse Rate from SpO2 Sensor 70 65 Respiratory Rate 23 20 17 Respiratory Effort / Characteristics Non-Labored Blood Pressure 126/77 126/77 Blood Pressure [Right Arm] Blood Pressure Mean 92 93 Blood Pressure Mean [Right Arm] Pulse Oximetry 98 90 Oxygen Delivery Method Room Air Oxygen Flow Rate 2 2 Sepsis Recent Fever Within 48 Hours Yes Sepsis New/Unexplained Change in Mental Status No Sepsis Action Taken by Nursing No Action Required Oxygen Flow Rate - Titration Pulse Oximetry Post Tiitration 11/05/20 21:22 11/05/20 21:30 11/05/20 21:36 Temperature Temperature Source Pulse Rate 60 Pulse Rate [Apical] Pulse Rate from SpO2 Sensor 60 Respiratory Rate 19 18 Respiratory Effort / Characteristics Non-Labored Blood Pressure 123/67 Blood Pressure [Right Arm] Blood Pressure Mean 86 Blood Pressure Mean [Right Arm] Pulse Oximetry 89 L 99 99 Oxygen Delivery Method Room Air Nasal Cannula Oxygen Flow Rate 0 2 2 Sepsis Recent Fever Within 48 Hours Sepsis New/Unexplained Change in Mental Status Sepsis Action Taken by Nursing Oxygen Flow Rate - Titration 2 Pulse Oximetry Post Tiitration 98 11/05/20 21:45 11/05/20 22:04 11/05/20 22:09 Temperature Temperature Source Pulse Rate 64 63 Pulse Rate [Apical] Pulse Rate from SpO2 Sensor 60 Respiratory Rate 21 18 18 Respiratory Effort / Characteristics Non-Labored Blood Pressure Blood Pressure [Right Arm] Blood Pressure Mean Blood Pressure Mean [Right Arm] Pulse Oximetry 98 98 96 Oxygen Delivery Method Nasal Cannula Oxygen Flow Rate 2 2 2 Sepsis Recent Fever Within 48 Hours Sepsis New/Unexplained Change in Mental Status Sepsis Action Taken by Nursing Oxygen Flow Rate - Titration Pulse Oximetry Post Tiitration 11/05/20 22:15 11/05/20 22:22 11/05/20 23:00 Temperature Temperature Source Pulse Rate 58 L 58 L Pulse Rate [Apical] 53 L Pulse Rate from SpO2 Sensor 57 L 57 L Respiratory Rate 24 21 18 Respiratory Effort / Characteristics Blood Pressure 124/59 L Blood Pressure [Right Arm] 127/71 Blood Pressure Mean 76 Blood Pressure Mean [Right Arm] 89 Pulse Oximetry 94 96 95 Oxygen Delivery Method Nasal Cannula Oxygen Flow Rate 2 2 2 Sepsis Recent Fever Within 48 Hours Sepsis New/Unexplained Change in Mental Status Sepsis Action Taken by Nursing Oxygen Flow Rate - Titration Pulse Oximetry Post Tiitration 11/05/20 23:20 11/05/20 23:30 11/05/20 23:50 Temperature Temperature Source Pulse Rate Pulse Rate [Apical] 58 L 67 Pulse Rate from SpO2 Sensor Respiratory Rate 18 18 Respiratory Effort / Characteristics Non-Labored Non-Labored Spontaneous Blood Pressure Blood Pressure [Right Arm] 135/79 Blood Pressure Mean Blood Pressure Mean [Right Arm] 97 Pulse Oximetry 96 95 Oxygen Delivery Method Nasal Cannula Nasal Cannula Oxygen Flow Rate 2 2 Sepsis Recent Fever Within 48 Hours Sepsis New/Unexplained Change in Mental Status Sepsis Action Taken by Nursing Oxygen Flow Rate - Titration Pulse Oximetry Post Tiitration 11/05/20 23:54 11/06/20 00:00 Temperature Temperature Source Pulse Rate Pulse Rate [Apical] 63 Pulse Rate from SpO2 Sensor Respiratory Rate 18 Respiratory Effort / Characteristics Blood Pressure Blood Pressure [Right Arm] 149/77 H Blood Pressure Mean Blood Pressure Mean [Right Arm] 101 Pulse Oximetry 100 97 Oxygen Delivery Method Nebulizer Nasal Cannula Oxygen Flow Rate 2 Sepsis Recent Fever Within 48 Hours Sepsis New/Unexplained Change in Mental Status Sepsis Action Taken by Nursing Oxygen Flow Rate - Titration Pulse Oximetry Post Tiitration Physical Exam GENERAL: She is oriented to person, place, and time. She appears well-developed and well-nourished. She does not appear distressed. EYES: Conjunctivae and EOM are normal. Pupils are equal, round, and reactive to light. Right eye exhibits no discharge. Left eye exhibits no discharge. No scleral icterus. NECK: Normal range of motion. Neck supple. No JVD present. No spinous process tenderness present. No carotid bruit present. No rigidity. No tracheal deviation and normal range of motion present. No Brudzinski's sign and no Kernig's sign noted. CV: Normal rate, regular rhythm, normal heart sounds and intact distal pulses. There is no peripheral edema. Palpable radial pulses bue. PULM/CHEST: Effort normal and breath sounds normal. No respiratory distress. No stridor. She has no wheezes. She has no rales. -Chest Wall: She exhibits no tenderness. ABD: The abdomen is soft. Bowel sounds are normal. She has no distension. No mass is present. There is no tenderness. There is no rebound, no guarding, no Agrawal's sign and no tenderness at McBurney's point. Rovsig negative MUSC/SKEL: Normal range of motion. There is no peripheral edema, tenderness or deformity. LYMPH: No cervical adenopathy. NEURO: She is alert and oriented to person, place, and time. She has normal strength. No cranial nerve deficit or sensory deficit. Coordination and gait n ormal. GCS eye subscore is 4. GCS verbal subscore is 5. GCS motor subscore is 6. Cerebellar tests wnl. SKIN: Skin is warm and dry. She is not diaphoretic. PSYCH: She has a normal mood and affect. Behavior is normal. Judgment and thought content normal. Course Course 2028: The patient was evaluated in room A9. A complete history and physical exam was performed. Cardiac monitoring: An order was placed for continuous cardiac monitoring. The monitor shows a rate of 73 with sinus rhythm Patient was seen in full airborne precautions. Patient was seen in N95's, gloves, gowns, face shield by myself and staff. Patient was hypoxic on room air. Patient was given supplemental oxygen which improved her oxygen saturation. Given the patient's symptoms, COVID-19 is high on the differential list and notes Decadron 6 mg IV push was ordered given the patient's hypoxia. Will obtain labs and imaging. 0: Vital signs stable on supplemental oxygen. Labs are within normal limits including COVID-19 swab which is negative. Imaging does show bilateral groundglass opacities of the lungs as well as nonspecific ileitis. Patient will be treated for presumed bacterial pneumonia community-acquired with Rocephin and [facility]ithromycin. [facility] and will [facility] the patient. Administered Medications Discontinued Medications Albuterol (Albut/Ipratrop 3mg/0.5mg Neb 3 Ml Vial) 3 ml NEB NOW STA Stop: 11/05/20 23:26 Last Admin: 11/05/20 23:49 Dose: 3 ml Documented by: [id number] Azithromycin (Azithromycin 250 Mg Tab) 500 mg PO NOW ONE Stop: 12/31/20 22:25 Last Admin: 11/05/20 22:38 Dose: 500 mg Documented by: [id number] Dexamethasone (Dexamethasone Sod Inj 10 Mg/Ml Vial) 6 mg IV NOW ONE Stop: 11/05/20 20:46 Last Admin: 11/05/20 20:51 Dose: 6 mg Documented by: [id number] Diphenhydramine HCl (Diphenhydramine 50 Mg/Ml Vial) 25 mg IV NOW STA Stop: 11/05/20 20:46 Last Admin: 11/05/20 20:52 Dose: 25 mg Documented by: [id number] Acetaminophen (Ofirmev) 1,000 mg in 100 mls @ 400 mls/hr IV NOW STA Stop: 11/05/20 20:59 Last Infusion: 11/05/20 21:27 Dose: 0 mls/hr Documented by: [id number] Admin: 11/05/20 20:52 Dose: 400 mls/hr Documented by: [id number] Sodium Chloride (Nss 1000ml) 1,000 mls @ 999 mls/hr IV .Q1H1M ONE Stop: 11/05/20 21:45 Last Infusion: 11/05/20 23:12 Dose: 0 mls/hr Documented by: [id number] Admin: 11/05/20 20:51 Dose: 999 mls/hr Documented by: [id number] Ceftriaxone Sodium (Rocephin) 1,000 mg in 50 mls @ 100 mls/hr IV NOW STA Stop: 11/05/20 22:53 Last Infusion: 11/05/20 23:12 Dose: 0 mls/hr Documented by: [id number] Admin: 11/05/20 22:38 Dose: 100 mls/hr Documented by: [id number] Ioversol (Optiray 320 125ml) 119 ml IV ONCE ONE Stop: 11/05/20 21:53 Last Admin: 11/05/20 21:52 Dose: 119 ml Documented by: [id number] Ketorolac Tromethamine (Ketorolac Tromethamine 15 Mg/Ml Vial) 15 mg IV NOW ONE Stop: 11/05/20 23:22 Last Admin: 11/05/20 23:51 Dose: 15 mg Documented by: [id number] Labetalol HCl (Labetalol Hcl Iv 5 Mg/Ml 20ml) 20 mg IV NOW STA Stop: 11/05/20 22:15 Last Admin: 11/05/20 23:17 Dose: Not Given Documented by: [id number] Metoclopramide HCl (Metoclopramide Hcl Inj 5 Mg/Ml 2 Ml Vial) 5 mg IV ONE ONE Stop: 11/05/20 20:46 Last Admin: 11/05/20 20:52 Dose: 5 mg Documented by: [id number] Potassium Chloride (Potassium Chloride Crtab 20 Meq Tabcr) 40 meq PO NOW STA Stop: 11/05/20 22:50 Last Admin: 11/05/20 23:16 Dose: 40 meq Documented by: [id number] Critical Care Time Critical Care Time: Yes Total Critical Care Time: 56 I have personally spent greater than 56 minutes of critical care time in the direct management of this patient. This includes bedside care, interpretation of diagnostic studies, and testing, discussion with consultants, patient, and family members, and other required patient management activities. This 56 minutes is in excess of all separately billable procedures. Medical Decision Making Laboratory Data Result diagrams: 11/05/20 20:50 11/05/20 20:50 Lab Results 11/05/20 11/05/20 11/05/20 Range/Units 20:50 20:50 20:50 WBC 8.72 (4.8-10.8) K/uL RBC 4.53 (4.2-5.4) M/uL Hgb 14.0 (12.0-16.0) g/dL Hct 40.4 (37-47) % MCV 89.2 (80-100) fL MCH 30.9 (25-34) pg MCHC 34.7 (32-36) g/dL RDW Std Deviation 40.1 (36.4-46.3) fL RDW Coeff of Giovani 12.4 (11.5-14.5) % Plt Count 260 (130-400) K/uL MPV 8.7 (7.4-10.4) fL Immature Gran % (Auto) 0.5 % Neut % (Auto) 76.7 % Lymph % (Auto) 16.2 % [place] % (Auto) 6.3 % Eos % (Auto) 0.0 % Baso % (Auto) 0.3 % Neut # (Auto) 6.69 H (1.4-6.5) K/uL Lymph # (Auto) 1.41 (1.2-3.4) K/uL [place] # (Auto) 0.55 (0.11-0.59) K/uL Eos # (Auto) 0.00 (0-0.5) K/uL Baso # (Auto) 0.03 (0-0.2) K/uL Immature Gran # (Auto) 0.04 H (0.00-0.02) K/uL PT 10.1 (9.0-12.0) Seconds INR 1.0 (0.9-1.1) APTT 23.1 (21.0-31.0) Seconds PTT Ratio 0.8 ABG pH (7.35-7.45) ABG pCO2 (35-46) mmHg ABG pO2 (80-95) mmHg ABG HCO3 (19-24) mmol/L ABG O2 Saturation (90-95) % ABG Base Excess (-9-1.8) mEq/L Saurabh Test (Pos) Barometric Pressure mm/Hg Oxygen Given Sodium 141 (136-145) mmol/L Potassium 3.3 L (3.5-5.1) mmol/L Chloride 109 H (98-107) mmol/L Carbon Dioxide 22 (21-32) mmol/L Anion Gap 10.0 (3-11) BUN 10 (7-18) mg/dl Creatinine 0.75 (0.6-1.2) mg/dl Est Cr Clr Drug Dosing 72.3 ml/min Est GFR ( Amer) 103.3 Est GFR (Non-Af Amer) 89.1 BUN/Creatinine Ratio 13.3 (10-20) Glucose 111 H (70-99) mg/dl Lactate (0.4-2.0) mmol/L Calcium 9.2 (8.5-10.1) mg/dl Magnesium 2.0 (1.8-2.4) mg/dl Total Bilirubin 0.4 (0.2-1) mg/dl AST 25 (15-37) U/L ALT 30 (12-78) U/L Alkaline Phosphatase 96 (45-117) U/L Troponin I < 0.015 (0-0.045) ng/ml Total Protein 7.9 (6.4-8.2) gm/dl Albumin 3.4 (3.4-5.0) gm/dl Globulin 4.5 H (2.5-4.0) gm/dl Albumin/Globulin Ratio 0.8 L (0.9-2) Procalcitonin (0-0.5) ng/ml TSH 2.140 (0.300-4.500) uIu/ml Urine Color Urine Appearance (Clear) Urine pH (4.5-7.5) Ur Specific Reading (1.000-1.030) Urine Protein (Negative) Urine Glucose (UA) (Negative) Urine Ketones (Negative) Urine Blood (Negative) Urine Nitrite (Negative) Urine Bilirubin (Negative) Urine Urobilinogen (Negative) Ur Leukocyte Esterase (Negative) Urine WBC (Auto) (0-5) /hpf Urine RBC (Auto) (0-4) /hpf U Hyaline Cast (Auto) (0-5) /lpf U Epithel Cells (Auto) (0-5) /lpf Urine Bacteria (Auto) (Negative) COVID-19 Eval Order SARS-CoV-2, RNA, NAAT (NEGATIVE) 11/05/20 11/05/20 11/05/20 Range/Units 20:50 20:50 21:18 WBC (4.8-10.8) K/uL RBC (4.2-5.4) M/uL Hgb (12.0-16.0) g/dL Hct (37-47) % MCV (80-100) fL MCH (25-34) pg MCHC (32-36) g/dL RDW Std Deviation (36.4-46.3) fL RDW Coeff of Giovani (11.5-14.5) % Plt Count (130-400) K/uL MPV (7.4-10.4) fL Immature Gran % (Auto) % Neut % (Auto) % Lymph % (Auto) % [place] % (Auto) % Eos % (Auto) % Baso % (Auto) % Neut # (Auto) (1.4-6.5) K/uL Lymph # (Auto) (1.2-3.4) K/uL [place] # (Auto) (0.11-0.59) K/uL Eos # (Auto) (0-0.5) K/uL Baso # (Auto) (0-0.2) K/uL Immature Gran # (Auto) (0.00-0.02) K/uL PT (9.0-12.0) Seconds INR (0.9-1.1) APTT (21.0-31.0) Seconds PTT Ratio ABG pH (7.35-7.45) ABG pCO2 (35-46) mmHg ABG pO2 (80-95) mmHg ABG HCO3 (19-24) mmol/L ABG O2 Saturation (90-95) % ABG Base Excess (-9-1.8) mEq/L Saurabh Test (Pos) Barometric Pressure mm/Hg Oxygen Given Sodium (136-145) mmol/L Potassium (3.5-5.1) mmol/L Chloride (98-107) mmol/L Carbon Dioxide (21-32) mmol/L Anion Gap (3-11) BUN (7-18) mg/dl Creatinine (0.6-1.2) mg/dl Est Cr Clr Drug Dosing ml/min Est GFR ( Amer) Est GFR (Non-Af Amer) BUN/Creatinine Ratio (10-20) Glucose (70-99) mg/dl Lactate 1.1 (0.4-2.0) mmol/L Calcium (8.5-10.1) mg/dl Magnesium (1.8-2.4) mg/dl Total Bilirubin (0.2-1) mg/dl AST (15-37) U/L ALT (12-78) U/L Alkaline Phosphatase (45-117) U/L Troponin I (0-0.045) ng/ml Total Protein (6.4-8.2) gm/dl Albumin (3.4-5.0) gm/dl Globulin (2.5-4.0) gm/dl Albumin/Globulin Ratio (0.9-2) Procalcitonin 0.06 (0-0.5) ng/ml TSH (0.300-4.500) uIu/ml Urine Color Urine Appearance (Clear) Urine pH (4.5-7.5) Ur Specific Reading (1.000-1.030) Urine Protein (Negative) Urine Glucose (UA) (Negative) Urine Ketones (Negative) Urine Blood (Negative) Urine Nitrite (Negative) Urine Bilirubin (Negative) Urine Urobilinogen (Negative) Ur Leukocyte Esterase (Negative) Urine WBC (Auto) (0-5) /hpf Urine RBC (Auto) (0-4) /hpf U Hyaline Cast (Auto) (0-5) /lpf U Epithel Cells (Auto) (0-5) /lpf Urine Bacteria (Auto) (Negative) COVID[facility]19 [email or web address] SARS-[facility]-2, RNA, NAAT (NEGATIVE) 11/05/20 11/05/20 11/05/20 Range/Units 21:18 22:10 23:49 WBC (4.8-10.8) K/uL RBC (4.2-5.4) M/uL Hgb (12.0-16.0) g/dL Hct (37-47) % MCV (80-100) fL MCH (25-34) pg MCHC (32-36) g/dL RDW Std Deviation (36.4-46.3) fL RDW Coeff of Giovani (11.5-14.5) % Plt Count (130-400) K/uL MPV (7.4-10.4) fL Immature Gran % (Auto) % Neut % (Auto) % Lymph % (Auto) % [place] % (Auto) % Eos % (Auto) % Baso % (Auto) % Neut # (Auto) (1.4-6.5) K/uL Lymph # (Auto) (1.2-3.4) K/uL [place] # (Auto) (0.11-0.59) K/uL Eos # (Auto) (0-0.5) K/uL Baso # (Auto) (0-0.2) K/uL Immature Gran # (Auto) (0.00-0.02) K/uL PT (9.0-12.0) Seconds INR (0.9-1.1) APTT (21.0-31.0) Seconds PTT Ratio ABG pH 7.40 (7.35-7.45) ABG pCO2 35 (35-46) mmHg ABG pO2 86 (80-95) mmHg ABG HCO3 21 (19-24) mmol/L ABG O2 Saturation 96.7 H (90-95) % ABG Base Excess -3.2 (-9-1.8) mEq/L Saurabh Test POS (Pos) Barometric Pressure 744.4 mm/Hg Oxygen Given ROOM AIR Sodium (136-145) mmol/L Potassium (3.5-5.1) mmol/L Chloride (98-107) mmol/L Carbon Dioxide (21-32) mmol/L Anion Gap (3-11) BUN (7-18) mg/dl Creatinine (0.6-1.2) mg/dl Est Cr Clr Drug Dosing ml/min Est GFR ( Amer) Est GFR (Non-Af Amer) BUN/Creatinine Ratio (10-20) Glucose (70-99) mg/dl Lactate (0.4-2.0) mmol/L Calcium (8.5-10.1) mg/dl Magnesium (1.8-2.4) mg/dl Total Bilirubin (0.2-1) mg/dl AST (15-37) U/L ALT (12-78) U/L Alkaline Phosphatase (45-117) U/L Troponin I (0-0.045) ng/ml Total Protein (6.4-8.2) gm/dl Albumin (3.4-5.0) gm/dl Globulin (2.5-4.0) gm/dl Albumin/Globulin Ratio (0.9-2) Procalcitonin (0-0.5) ng/ml TSH (0.300-4.500) uIu/ml Urine Color Yellow Urine Appearance Clear (Clear) Urine pH 6.5 (4.5-7.5) Ur Specific Reading 1.017 (1.000-1.030) Urine Protein Negative (Negative) Urine Glucose (UA) Negative (Negative) Urine Ketones Negative (Negative) Urine Blood Negative (Negative) Urine Nitrite Negative (Negative) Urine Bilirubin Negative (Negative) Urine Urobilinogen Negative (Negative) Ur Leukocyte Esterase Trace H (Negative) Urine WBC (Auto) 1-5 (0-5) /hpf Urine RBC (Auto) 0-4 (0-4) /hpf U Hyaline Cast (Auto) 0 (0-5) /lpf U Epithel Cells (Auto) 10-20 H (0-5) /lpf Urine Bacteria (Auto) Negative (Negative) COVID-19 Eval Order SARS-CoV-2, RNA, NAAT NEGATIVE (NEGATIVE) Imaging Data Radiologist's Impression: CT SCAN OF THE BRAIN WITHOUT IV CONTRAST CLINICAL HISTORY: Headache. COMPARISON STUDY: CT of the brain dated 11/15/2007. TECHNIQUE: Unenhanced axial CT scan of the brain is performed from the vertex to the skull base. A dose lowering technique was utilized adhering to the princi ples of LOU. CT DOSE: 1971.83 mGy.cm FINDINGS: Brain parenchyma: The brain parenchyma is normal in appearance. There is no hemorrhage, mass effect, or evidence of acute territorial ischemia by CT criteria. Lopez-white matter differentiation is preserved. No extra-axial fluid collection is seen. Ventricles, sulci, cisterns: Normal in configuration. Intracranial vasculature: The visualized intracranial vasculature at the skull base is normal in appearance. Calvarium: Unremarkable. Sinuses and mastoids: There is mild mucosal thickening in the right maxillary antrum and the right sphenoid sinuses. The remaining visualized paranasal sinuses are clear. The mastoid air cells are well pneumatized. Orbits: The bony orbits are grossly intact. IMPRESSION: No acute intracranial abnormality. ACT 112: Negative or not required by law. Electronically signed by: Prashanth Soler M.D. 11/05/2020 10:03 PM Dictated: 11/05/202199Transcribed: 11/05/202199 SINGLE VIEW CHEST CLINICAL HISTORY: Sepsis. FINDINGS: An AP, portable, upright chest radiograph is compared to study dated 12/31/2016 and correlated with chest CT dated 01/06/2014. The cardiomediastinal silhouette is unremarkable. There is chronic elevation of the right hemidiaphragm. There is multifocal airspace airspace consolidation seen throughout both lungs. No large pleural effusion or pneumothorax is seen. The bony thorax is grossly intact. Cholecystectomy clips are noted in the right upper quadrant. IMPRESSION: Multifocal airspace consolidation is seen throughout both lungs, typical for an infectious pneumonitis. Clinical correlation will be required and radiographic follow-up to resolution is recommended. ACT 112: Negative or not required by law. Electronically signed by: Prashanth Soler M.D. 11/05/2020 9:07 PM Dictated: 11/05/202105Transcribed: 11/05/202105 CT ANGIOGRAM OF THE CHEST; CT SCAN OF THE ABDOMEN AND PELVIS WITH IV CONTRAST CLINICAL HISTORY: Headache. Generalized abdominal pain. Sepsis. COMPARISON STUDY: Chest x-ray dated 11/05/2020. Chest CT dated 01/06/2014. Abdominal CT dated 01/29/2017. TECHNIQUE: Following the IV administration of 119 of Optiray 320, CT angiogram of the chest is performed from the upper abdomen to the thoracic inlet utilizing the pulmonary embolus protocol. Images are reviewed in the axial, sagittal, coronal planes. 3-D MIPS images are created and assessed. Subsequently, CT scan of the abdomen and pelvis was performed from the lung bases to the proximal femora. Images are reviewed in the axial, sagittal, and coronal planes. IV contrast was administered without complication. A dose lowering technique was utilized adhering to the principles of ALARA. The examination is degraded by streak artifact from the arms which could not be elevated above the chest or abdomen. FINDINGS: CHEST: Thyroid: Imaged portions of the thyroid gland are normal in size and attenuation. Thoracic aorta: The thoracic aorta is normal in caliber and demonstrates 4-vess el variant arch anatomy. No dissection is seen. Pulmonary vasculature: The pulmonary trunk is normal in caliber. There are no filling defects identified in the main, lobar, or segmental pulmonary arteries to indicate pulmonary embolus. Heart: The heart is normal in size and configuration, and without pericardial effusion. Lungs and pleural spaces: The trachea and central airways are clear. There is chronic elevation of the right hemidiaphragm with associated right basilar atelectasis. There is multifocal groundglass consolidation throughout both lungs with a subpleural predominance. No pleural effusion or pneumothorax is seen. A small fat-containing Bochdalek hernia is noted at the left lung base. Mediastinum: Mildly enlarged mediastinal lymph nodes measure up to 10 mm in short axis. Beata: Mildly enlarged hilar nodes measure up to 12 mm in short axis. Axillae: There is no axillary lymphadenopathy. Bony thorax: No lytic or blastic lesions are identified. ABDOMEN AND PELVIS: Liver: The contrast-enhanced liver is enlarged, measuring 19.0 cm in length. The liver demonstrates diffusely diminished attenuation consistent with severe hepatic steatosis. There is mild central intrahepatic biliary ductal dilatation. The hepatic veins and portal veins are patent. Gallbladder: Surgically absent noting clips in the gallbladder fossa. Spleen: Normal in size and attenuation. Pancreas: Unremarkable. Adrenal glands: Unremarkable. Kidneys: The contrast enhanced kidneys are normal in size and without hydronephrosis. The kidneys enhance symmetrically. Abdominal vasculature: The abdominal aorta is normal in course and caliber noting scattered foci of atherosclerotic calcification. Stomach and bowel: There is a small hiatal hernia. There is moderate colonic diverticulosis without CT evidence of acute diverticulitis. No bowel obstruction is seen. There is a long segment of mildly thick-walled small bowel involving the ileum. This includes the distal/terminal ileum, and there is mild surrounding infiltration and trace interloop fluid. The appendix is well- visualized and normal. Peritoneum: There is no intraperitoneal free air or abdominal ascites. Lymphadenopathy: None. Pelvic viscera: The bladder, uterus, and adnexa are normal as imaged. Trace free fluid is noted in the cul-de-sac. Skeletal structures: No lytic or blastic lesions are seen. IMPRESSION: 1. There is no evidence of pulmonary embolus in the main, lobar, or segmental pulmonary arteries. 2. Multifocal groundglass consolidation throughout both lungs is typical for an infectious pneumonitis. Radiographic follow-up to resolution is recommended. 3. There is no pleural effusion. 4. Mildly enlarged mediastinal and hilar lymph nodes are likely reactive. 5. There is a long segment of mildly thick-walled small bowel involving the ileum. This includes the distal/terminal ileum, and there is mild surrounding infiltration and trace interloop fluid. The appearance is consistent with a nonspecific ileitis, likely on an infectious or inflammatory basis in this age group. 6. Trace nonspecific free fluid is noted in the pelvis. 7. Hepatomegaly and hepatic steatosis. 8. Moderate colonic diverticulosis without CT evidence of acute diverticulitis. 9. Additional findings as above. ACT 112: Negative or not required by law. Electronically signed by: Prashanth Soler M.D. 11/05/2020 10:29 PM Dictated: 11/05/202214Transcribed: 11/05/202214 ECG Data Indication: + SOB/dyspnea Rate (beats per minute): 73 Rhythm: + normal sinus ECG Intervals/blocks: + Normal QRS, + Normal ND and + Normal QT-c ECG ST segments: + Normal ST segments ECG Findings: + LVH MDM Narrative 2028: The patient was evaluated in room A9. A complete history and physical exam was performed. Cardiac monitoring: An order was placed for continuous cardiac monitoring. The monitor shows a rate of 73 with sinus rhythm Patient was seen in full airborne precautions. Patient was seen in N95's, gloves, gowns, face shield by myself and staff. Patient was hypoxic on room air. Patient was given supplemental oxygen which improved her oxygen saturation. Given the patient's symptoms, COVID-19 is high on the differential list and notes Decadron 6 mg IV push was ordered given the patient's hypoxia. Will obtain labs and imaging. 2230: Vital signs stable on supplemental oxygen. Labs are within normal limits including COVID-19 swab which is negative. Imaging does show bilateral groundglass opacities of the lungs as well as nonspecific ileitis. Patient will be treated for presumed bacterial pneumonia community-acquired with Rocephin and azithromycin. Dr. Pete [facility] hospitalist has been notified about the patient and will admit the patient. Impression & Plan Hypoxia, Pneumonia Discharge Plan Visit Data Chief Complaint: Illness Stated Complaint: AB PAIN, FEVER, ED Provider: Enzo Richardson Discharge Problem: Hypoxia, Pneumonia Patient Disposition: Admitted As Inpatient Forms Stand Alone Forms: [facility] Prescriptions Prescriptions: No Action prednisone 10 mg tablet See Rx Instructions .ROUTE .COMPLEX RF: 0 famotidine 40 mg tablet 40 mg PO HS RF: 0 pantoprazole 40 mg tablet,delayed release (DR/EC) 40 mg PO QAM RF: 0 sertraline 25 mg tablet 25 mg PO HS RF: 0 metoprolol succinate 25 mg tablet extended release 24 hr 25 mg PO DAILY RF: 0 lorazepam 1 mg tablet 1 mg PO TID PRN (Reason: Anxiety) RF: 0 Referrals Referrals: Martell Garibay MD [Primary Care Provider] - Discharge Problem: Pneumonia Qualifiers: Pneumonia type: due to unspecified organism Laterality: bilateral Lung location: unspecified part of lung Qualified Code(s): J18.9 - Pneumonia, unspecified organism
[2020-11-05 21:07] LABS: Basophils # (auto) 0.03 K/uL (0-0.2); Basophils % (auto) 0.3 %; Hematocrit (blood only) 40.4 % (37-47); Immature Granulocytes # (auto) 0.04 K/uL (0.00-0.02); Immature Granulocytes % (auto) 0.5 %; Lymphocytes # (auto) 1.41 K/uL (1.2-3.4); Lymphocytes % (auto) 16.2 %; Mean Corpuscular Hemoglobin 30.9 pg (25-34); Mean Corpuscular Hgb Conc 34.7 g/dL (32-36); Mean Corpuscular Volume 89.2 fL (80-100); Mean Platelet Volume 8.7 fL (7.4-10.4); Monocytes # (auto) 0.55 K/uL (0.11-0.59); Monocytes % (auto) 6.3 %; Neutrophils # (auto) 6.69 K/uL (1.4-6.5); Neutrophils % (auto) 76.7 %; Platelet Count 260 K/uL (130-400); RDW Coefficient of Variation 12.4 % (11.5-14.5); RDW Standard Deviation 40.1 fL (36.4-46.3); Red Blood Count 4.53 M/uL (4.2-5.4); White Blood Count 8.72 K/uL (4.8-10.8)
--- NOTE | 2020-11-05 21:08 | XRay Report ---
SINGLE VIEW CHEST CLINICAL HISTORY: Sepsis. FINDINGS: An AP, portable, upright chest radiograph is compared to study dated 12/31/2016 and correlat ed with chest CT dated 01/06/2014. The cardiomediastinal silhouette is unremarkable. There is chronic e levation of the right hemidiaphragm. There is multifocal airspace airspace consolidation seen through out both lungs. No large pleural effusion or pneumothorax is seen. The bony thorax is grossly intact. Cholecystectomy clips are noted in the right upper quadrant. IMPRESSION: Multifocal airspace consolidation is seen throughout both lungs, typical for an infectiou s pneumonitis. Clinical correlation will be required and radiographic follow-up to resolution is dedrick mmended. ACT 112: Negative or not required by law. Electronically signed by: Prashanth Soler M.D. 11/05/2020 9:07 PM
[2020-11-05 21:25] LABS: Alanine Aminotransferase 30 U/L (12-78); Albumin Level 3.4 gm/dl (3.4-5.0); Aspartate Aminotransferase 25 U/L (15-37); BUN Creatinine Ratio 13.3 (10-20); Blood Urea Nitrogen 10 mg/dl (7-18); Calcium 9.2 mg/dl (8.5-10.1); Carbon Dioxide 22 mmol/L (21-32); Chloride 109 mmol/L (98-107); Creatinine Clr Calc Pharmacy 72.3 ml/min; Est GFR (African American) 103.3; Est GFR (Non-African American) 89.1; Glucose 111 mg/dl (70-99); Potassium 3.3 mmol/L (3.5-5.1); Sodium 141 mmol/L (136-145)
[2020-11-05 21:28] LABS: Partial Thromboplastin Ratio 0.8; Partial Thromboplastin Time 23.1 Seconds (21.0-31.0); Prothrombin Time 10.1 Seconds (9.0-12.0)
[2020-11-05 21:29] LABS: Albumin Globulin Ratio 0.8 (0.9-2); Alkaline Phosphatase 96 U/L (45-117); Bilirubin,Total 0.4 mg/dl (0.2-1); Globulin 4.5 gm/dl (2.5-4.0); Total Protein 7.9 gm/dl (6.4-8.2); Troponin I < 0.015 ng/ml (0-0.045)
[2020-11-05] MEDS ORDERED: OPTIRAY 320 125ml IV ONE (21:52)
--- NOTE | 2020-11-05 22:04 | CT Scan Report ---
CT SCAN OF THE BRAIN WITHOUT IV CONTRAST CLINICAL HISTORY: Headache. COMPARISON STUDY: CT of the brain dated 11/15/2007. TECHNIQUE: Unenhanced axial CT scan of the brain is performed from the vertex to the skull base. A d ose lowering technique was utilized adhering to the principles of ALARA. CT DOSE: 1971.83 mGy.cm FINDINGS: Brain parenchyma: The brain parenchyma is normal in appearance. There is no hemorrhage, mass effect, or evidence of acute territorial ischemia by CT criteria. Lopez-white matter differentiation is preser rocío. No extra-axial fluid collection is seen. Ventricles, sulci, cisterns: Normal in configuration. Intracranial vasculature: The visualized intracranial vasculature at the skull base is normal in appe arance. Calvarium: Unremarkable. Sinuses and mastoids: There is mild mucosal thickening in the right maxillary antrum and the right sp henoid sinuses. The remaining visualized paranasal sinuses are clear. The mastoid air cells are well pneumatized. Orbits: The bony orbits are grossly intact. IMPRESSION: No acute intracranial abnormality. ACT 112: Negative or not required by law. Electronically signed by: Prashanth Soler M.D. 11/05/2020 10:03 PM
[2020-11-05] MEDS ORDERED: LABETALOL HCL IV 5 MG/ML 20ML IV STA (22:14)
[2020-11-05] MEDS ORDERED: AZITHROMYCIN 250 MG TAB PO ONE (22:24)
[2020-11-05] MEDS ORDERED: cefTRIAXone SODIUM 1,000 MG/50 ML BAG IV STA (22:24)
--- NOTE | 2020-11-05 22:30 | CT Scan Report ---
CT ANGIOGRAM OF THE CHEST; CT SCAN OF THE ABDOMEN AND PELVIS WITH IV CONTRAST CLINICAL HISTORY: Headache. Generalized abdominal pain. Sepsis. COMPARISON STUDY: Chest x-ray dated 11/05/2020. Chest CT dated 01/06/2014. Abdominal CT dated 7. TECHNIQUE: Following the IV administration of 119 of Optiray 320, CT angiogram of the chest is perfor med from the upper abdomen to the thoracic inlet utilizing the pulmonary embolus protocol. Images are reviewed in the axial, sagittal, coronal planes. 3-D MIPS images are created and assessed. Subsequen tly, CT scan of the abdomen and pelvis was performed from the lung bases to the proximal femora. Imag es are reviewed in the axial, sagittal, and coronal planes. IV contrast was administered without comp lication. A dose lowering technique was utilized adhering to the principles of ALARA. The examination is degraded by streak artifact from the arms which could not be elevated above the chest or abdomen. FINDINGS: CHEST: Thyroid: Imaged portions of the thyroid gland are normal in size and attenuation. Thoracic aorta: The thoracic aorta is normal in caliber and demonstrates 4-vessel variant arch anatom y. No dissection is seen. Pulmonary vasculature: The pulmonary trunk is normal in caliber. There are no filling defects identif ied in the main, lobar, or segmental pulmonary arteries to indicate pulmonary embolus. Heart: The heart is normal in size and configuration, and without pericardial effusion. Lungs and pleural spaces: The trachea and central airways are clear. There is chronic elevation of th e right hemidiaphragm with associated right basilar atelectasis. There is multifocal groundglass cons olidation throughout both lungs with a subpleural predominance. No pleural effusion or pneumothorax i s seen. A small fat-containing Bochdalek hernia is noted at the left lung base. Mediastinum: Mildly enlarged mediastinal lymph nodes measure up to 10 mm in short axis. Beata: Mildly enlarged hilar nodes measure up to 12 mm in short axis. Axillae: There is no axillary lymphadenopathy. Bony thorax: No lytic or blastic lesions are identified. ABDOMEN AND PELVIS: Liver: The contrast-enhanced liver is enlarged, measuring 19.0 cm in length. The liver demonstrates d iffusely diminished attenuation consistent with severe hepatic steatosis. There is mild central intra hepatic biliary ductal dilatation. The hepatic veins and portal veins are patent. Gallbladder: Surgically absent noting clips in the gallbladder fossa. Spleen: Normal in size and attenuation. Pancreas: Unremarkable. Adrenal glands: Unremarkable. Kidneys: The contrast enhanced kidneys are normal in size and without hydronephrosis. The kidneys enh ance symmetrically. Abdominal vasculature: The abdominal aorta is normal in course and caliber noting scattered foci of a therosclerotic calcification. Stomach and bowel: There is a small hiatal hernia. There is moderate colonic diverticulosis without C T evidence of acute diverticulitis. No bowel obstruction is seen. There is a long segment of mildly t hick-walled small bowel involving the ileum. This includes the distal/terminal ileum, and there is mi ld surrounding infiltration and trace interloop fluid. The appendix is well-visualized and normal. Peritoneum: There is no intraperitoneal free air or abdominal ascites. Lymphadenopathy: None. Pelvic viscera: The bladder, uterus, and adnexa are normal as imaged. Trace free fluid is noted in th e cul-de-sac. Skeletal structures: No lytic or blastic lesions are seen. IMPRESSION: 1. There is no evidence of pulmonary embolus in the main, lobar, or segmental pulmonary arteries. 2. Multifocal groundglass consolidation throughout both lungs is typical for an infectious pneumoniti s. Radiographic follow-up to resolution is recommended. 3. There is no pleural effusion. 4. Mildly enlarged mediastinal and hilar lymph nodes are likely reactive. 5. There is a long segment of mildly thick-walled small bowel involving the ileum. This includes the distal/terminal ileum, and there is mild surrounding infiltration and trace interloop fluid. The appe arance is consistent with a nonspecific ileitis, likely on an infectious or inflammatory basis in thi s age group. 6. Trace nonspecific free fluid is noted in the pelvis. 7. Hepatomegaly and hepatic steatosis. 8. Moderate colonic diverticulosis without CT evidence of acute diverticulitis. 9. Additional findings as above. ACT 112: Negative or not required by law. Electronically signed by: Prashanth Soler M.D. 11/05/2020 10:29 PM
[2020-11-05 22:36] LABS: Appearance Urine Clear (Clear); Bacteria Urine Automated Negative (Negative); Bilirubin Urine Negative (Negative); Blood Urine Negative (Negative); Cast Urine Automated 0 /lpf (0-5); Color Urine Yellow; Glucose Urine UA Negative (Negative); Ketones Urine Negative (Negative); Leukocyte Esterase Urine Trace (Negative); Nitrite Urine Negative (Negative); Protein Urine Negative (Negative); RBC Urine Automated 0-4 /hpf (0-4); Specific Gravity Urine 1.017 (1.000-1.030); Urobilinogen Urine Negative (Negative); pH Urine 6.5 (4.5-7.5)
[2020-11-05] MEDS ORDERED: POTASSIUM CHLORIDE CRTAB 20 MEQ TABCR PO STA (22:49)
[2020-11-05] MEDS ORDERED: KETOROLAC TROMETHAMINE 15 MG/ML VIAL IV ONE (23:21)
--- NOTE | 2020-11-05 23:23 | History & Physical Report ---
Date of Service November 05, 2020 Assessment & Plan (1) Acute hypoxemic respiratory failure: Secondary to community-acquired bronchopneumonia No sepsis hypertension, stable Diarrhea rule out C. difficile hx IBS as per patient anxiety/mood disorder, at baseline Hyperglycemia rule out DM past tobacco abuse Medical telemetry Supplemental O2 Baseline ABG Ceftriaxone, Doxycycline Nebs RTC given hypoxemia, bronchospasm from bronchopneumonia Stool C. difficile Check hemoglobin A1c DVT phylaxis. Lovenox subcu Full code Text document was generated using [employer] voice recognition software. It may contain grammatical or spelling errors. Kindly contact undersigned for clarification of any documentation item in question. History of Present Illness Chief Complaint: Abdominal pain, fever, cough, shortness of breath Primary Care Provider: Martell Garibay MD History obtained from patient and records. Medical history significant for hypertension, GERD, IBS, anxiety/mood disorder, chronic pain as per records, past tobacco abuse. 5 days history of cough symptoms productive of greenish sputum followed by achy generalized abdominal pain with nausea, emesis, diarrhea, loss of taste and smell. Bothersome reflux as per patient. Achy headache symptoms. No known recent COVID-19 contacts. Denies aspiration. O2 sats noted to be 80s at some point at the ER. Decadron, ceftriaxone, and azithromycin given at the ER for pneumonia. Medical History as above Surgical History : Carpal tunnel surgery, BTL, nasal surgery, knee surgery, cholecystectomy, hernia repair Family History : Hypertension Personal/Social history : Past tobacco abuse, no EtOH intake, disabled Allergies Allergy/AdvReac Type Severity Reaction Status Date / Time No Known Allergies Allergy Unverified 01/29/17 10:17 Home Medications Medication Instructions Recorded Confirmed Type famotidine 40 mg PO HS 11/05/20 11/05/20 History lorazepam 1 mg PO TID PRN 11/05/20 11/05/20 History metoprolol succinate 25 mg PO DAILY 11/05/20 11/05/20 History pantoprazole 40 mg PO QAM 11/05/20 11/05/20 History prednisone See Rx Instructions .ROUTE .COMPLEX 11/05/20 11/05/20 History sertraline 25 mg PO HS 11/05/20 11/05/20 History Past Med/Surg History Medical History (Updated 11/06/20 @ 10:55 by Kristopher Barnes MD) Anxiety Diarrhea No pertinent family history SOB (shortness of breath) Surgical History (Updated 11/05/20 @ 20:50 by Enzo Richardson) No pertinent past surgical history Social History Smoking Status: Former smoker Tobacco Type: Cigarettes Hx Alcohol Use: No Hx Substance Use: No Preferred Language: [place]ian Communication Ability: Effective Beliefs That Will Affect Care: None Current Living Situation: Alone Other Information That Helps Us Care for You: No Feels Safe at Home: Yes Assistive Devices: Oxygen - Continuous Review of Systems Review of Systems: As per HPI, all 10 systems reviewed, all other ROS negative Physical Exam Physical Exam: GENERAL: Slightly uncomfortable, no respiratory distress SKIN: Normal color, warm HEENT: Bespectacled, pink palpebral conjunctivae, no ptosis, dry buccal mucosa NECK : Supple, no tenderness, nasal cannula in place CHEST : Decreased breath sounds, occasional expiratory wheezes, no tenderness HEART : Bradycardic, no obvious murmurs ABDOMEN: Some distention, minimal epigastric tenderness EXTREMITIES : No LE swelling/tenderness, no other conspicuous deformities noted NEUROLOGIC : Coherent, no facial asymmetry, no other gross focality Results & Data Results & Data ([facility]) Vital Signs (Past 12 Hours) Vital Signs Temp Pulse Pulse Resp BP BP Pulse Ox 11/05/20 23:00 53 L 18 127/71 95 11/05/20 22:22 58 L 21 124/59 L 96 11/05/20 22:15 58 L 24 94 11/05/20 22:09 63 18 96 11/05/20 22:04 18 98 11/05/20 21:45 64 21 98 11/05/20 21:36 18 99 11/05/20 21:30 60 19 123/67 99 11/05/20 21:22 89 L 11/05/20 21:15 72 17 11/05/20 21:01 37.0 C 71 20 126/77 90 11/05/20 21:00 77 23 126/77 98 11/05/20 20:45 66 17 98 11/05/20 20:40 70 25 H 98 11/05/20 20:32 67 19 144/83 H 97 Laboratory Results Laboratory Results WBC 8.72 K/uL (4.8-10.8) 11/05/20 20:50 RBC 4.53 M/uL (4.2-5.4) 11/05/20 20:50 Hgb 14.0 g/dL (12.0-16.0) 11/05/20 20:50 Hct 40.4 % (37-47) 11/05/20 20:50 MCV 89.2 fL (80-100) 11/05/20 20:50 MCH 30.9 pg (25-34) 11/05/20 20:50 MCHC 34.7 g/dL (32-36) 11/05/20 20:50 RDW Std Deviation 40.1 fL (36.4-46.3) 11/05/20 20:50 RDW Coeff of Giovani 12.4 % (11.5-14.5) 11/05/20 20:50 Plt Count 260 K/uL (130-400) 11/05/20 20:50 MPV 8.7 fL (7.4-10.4) 11/05/20 20:50 Immature Gran % (Auto) 0.5 % 11/05/20 20:50 Neut % (Auto) 76.7 % 11/05/20 20:50 Lymph % (Auto) 16.2 % 11/05/20 20:50 [place] % (Auto) 6.3 % 11/05/20 20:50 Eos % (Auto) 0.0 % 11/05/20 20:50 Baso % (Auto) 0.3 % 11/05/20 20:50 Neut # (Auto) 6.69 K/uL (1.4-6.5) H 11/05/20 20:50 Lymph # (Auto) 1.41 K/uL (1.2-3.4) 11/05/20 20:50 [place]aney # (Auto) 0.55 K/uL (0.11-0.59) 11/05/20 20:50 Eos # (Auto) 0.00 K/uL (0-0.5) 11/05/20 20:50 Baso # (Auto) 0.03 K/uL (0-0.2) 11/05/20 20:50 Immature Gran # (Auto) 0.04 K/uL (0.00-0.02) H 11/05/20 20:50 PT 10.1 Seconds (9.0-12.0) 12/31/20 20:50 INR 1.0 (0.9-1.1) 11/05/20 20:50 APTT 23.1 Seconds (21.0-31.0) 11/05/20 20:50 PTT Ratio 0.8 11/05/20 20:50 Sodium 141 mmol/L (136-145) 11/05/20 20:50 Potassium 3.3 mmol/L (3.5-5.1) L 11/05/20 20:50 Chloride 109 mmol/L (98-107) H 11/05/20 20:50 Carbon Dioxide 22 mmol/L (21-32) 11/05/20 20:50 Anion Gap 10.0 (3-11) 11/05/20 20:50 BUN 10 mg/dl (7-18) 11/05/20 20:50 Creatinine 0.75 mg/dl (0.6-1.2) 11/05/20 20:50 Est Cr Clr Drug Dosing 72.3 ml/min 11/05/20 20:50 Est GFR ( Amer) 103.3 11/05/20 20:50 Est GFR (Non-Af Amer) 89.1 11/05/20 20:50 BUN/Creatinine Ratio 13.3 (10-20) 11/05/20 20:50 Glucose 111 mg/dl (70-99) H 11/05/20 20:50 Lactate 1.1 mmol/L (0.4-2.0) 11/05/20 20:50 Calcium 9.2 mg/dl (8.5-10.1) 11/05/20 20:50 Magnesium 2.0 mg/dl (1.8-2.4) 11/05/20 20:50 Total Bilirubin 0.4 mg/dl (0.2-1) 11/05/20 20:50 AST 25 U/L (15-37) 11/05/20 20:50 ALT 30 U/L (12-78) 11/05/20 20:50 Alkaline Phosphatase 96 U/L (45-117) 11/05/20 20:50 Troponin I < 0.015 ng/ml (0-0.045) 11/05/20 20:50 Total Protein 7.9 gm/dl (6.4-8.2) 11/05/20 20:50 Albumin 3.4 gm/dl (3.4-5.0) 11/05/20 20:50 Globulin 4.5 gm/dl (2.5-4.0) H 11/05/20 20:50 Albumin/Globulin Ratio 0.8 (0.9-2) L 11/05/20 20:50 Procalcitonin 0.06 ng/ml (0-0.5) 11/05/20 20:50 Urine Color Yellow 11/05/20 22:10 Urine Appearance Clear (Clear) 11/05/20 22:10 Urine pH 6.5 (4.5-7.5) 11/05/20 22:10 Ur Specific [place] 1.017 (1.000-1.030) 11/05/20 22:10 Urine Protein Negative (Negative) 11/05/20 22:10 Urine Glucose (UA) Negative (Negative) 11/05/20 22:10 Urine Ketones Negative (Negative) 11/05/20 22:10 Urine Blood Negative (Negative) 11/05/20 22:10 Urine Nitrite Negative (Negative) 11/05/20 22:10 Urine Bilirubin Negative (Negative) 11/05/20 22:10 Urine Urobilinogen Negative (Negative) 11/05/20 22:10 Ur Leukocyte Esterase Trace (Negative) H 11/05/20 22:10 Urine WBC (Auto) 1-5 /hpf (0-5) 11/05/20 22:10 Urine RBC (Auto) 0-4 /hpf (0-4) 11/05/20 22:10 U Hyaline Cast (Auto) 0 /lpf (0-5) 11/05/20 22:10 U Epithel Cells (Auto) 10-20 /lpf (0-5) H 11/05/20 22:10 Urine Bacteria (Auto) Negative (Negative) 11/05/20 22:10 COVID-19 Eval Order Covid19 IDNow Pending sale to [facility] 11/05/20 21:18 SARS-CoV-2, RNA, NAAT NEGATIVE (NEGATIVE) 11/05/20 21:[address] head: No acute intracranial abnormality. CT chest abdomen pelvis: 1. There is no evidence of pulmonary embolus in the main, lobar, or segmental pulmonary arteries. 2. Multifocal groundglass consolidation throughout both lungs is typical for an infectious pneumonitis. Radiographic follow-up to resolution is recommended. 3. There is no pleural effusion. 4. Mildly enlarged mediastinal and hilar lymph nodes are likely reactive. 5. There is a long segment of mildly thick-walled small bowel involving the ileum. This includes the distal/terminal ileum, and there is mild surrounding infiltration and trace interloop fluid. The appearance is consistent with a nonspecific ileitis, likely on an infectious or inflammatory basis in this age group. 6. Trace nonspecific free fluid is noted in the pelvis. 7. Hepatomegaly and hepatic steatosis. 8. Moderate colonic diverticulosis without CT evidence of acute diverticulitis. EKG as per my interpretation : Rate 75, NSR, normal axis, LVH, T wave abnormalities inferior leads
[2020-11-05] MEDS ORDERED: ALBUT/IPRATROP 3MG/0.5MG NEB 3 ML VIAL NEB STA (23:25)
[2020-11-05 23:59] LABS: Allen Test POS (Pos); Base Excess ABG -3.2 mEq/L (-9-1.8); HCO3 ABG 21 mmol/L (19-24); Oxygen Saturation ABG 96.7 % (90-95); PCO2 ABG 35 mmHg (35-46); PO2 ABG 86 mmHg (80-95)
[2020-11-06 00:41] LABS: Influenza A virus by PCR Negative (Negative); Influenza B virus by PCR Negative (Negative)
[2020-11-06] MEDS ORDERED: ALBUT/IPRATROP 3MG/0.5MG NEB 3 ML VIAL NEB PRN (00:58)
[2020-11-06] MEDS ORDERED: PROMETHAZINE HCL 6.25 MG in SODIUM CHLORIDE 0.9% 50 ML IV PRN (00:58)
[2020-11-06] MEDS ORDERED: POTASSIUM CHLORIDE 40 MEQ in SODIUM CHLORIDE 0.9% 1000ML 1,000 ML IV ONE (00:58)
[2020-11-06] MEDS ORDERED: ACETAMINOPHEN 325 MG TAB PO PRN (00:58)
[2020-11-06] MEDS ORDERED: INFLUENZA ADMINISTRATION CHARGE ONE (01:40)
[2020-11-06] MEDS ORDERED: INFLUENZA VIRUS QUAD VACCINE 0.5 ML SYR IM ONE (01:40)
[2020-11-06 06:33] LABS: Basophils # (auto) 0.03 K/uL (0-0.2); Basophils % (auto) 0.5 %; Hematocrit (blood only) 38.2 % (37-47); Hemoglobin 12.7 g/dL (12.0-16.0); Immature Granulocytes # (auto) 0.03 K/uL (0.00-0.02); Immature Granulocytes % (auto) 0.5 %; Lymphocytes % (auto) 26.3 %; Mean Corpuscular Hemoglobin 30.2 pg (25-34); Mean Corpuscular Hgb Conc 33.2 g/dL (32-36); Mean Corpuscular Volume 90.7 fL (80-100); Mean Platelet Volume 8.9 fL (7.4-10.4); Monocytes # (auto) 0.57 K/uL (0.11-0.59); Monocytes % (auto) 9.4 %; Neutrophils # (auto) 3.86 K/uL (1.4-6.5); Neutrophils % (auto) 63.3 %; Platelet Count 253 K/uL (130-400); RDW Coefficient of Variation 12.6 % (11.5-14.5); RDW Standard Deviation 41.9 fL (36.4-46.3); Red Blood Count 4.21 M/uL (4.2-5.4); White Blood Count 6.09 K/uL (4.8-10.8)
[2020-11-06] MEDS: traMADol HCL 50 MG TABLET PO PRN ×3 (06:43→22:05)
[2020-11-06 07:11] LABS: BUN Creatinine Ratio 10.8 (10-20); Calcium 8.6 mg/dl (8.5-10.1); Creatinine Clr Calc Pharmacy 61.4 ml/min; Est GFR (African American) 82.8; Est GFR (Non-African American) 71.5; Potassium 4.2 mmol/L (3.5-5.1)
[2020-11-06] MEDS: ENOXAPARIN INJ 30 MG/0.3 ML SYR SQ SCH (08:09)
[2020-11-06] MEDS: DOXYCYCLINE HYCLATE 100 MG CAP PO SCH ×2 (08:10→21:10)
[2020-11-06] MEDS: PANTOprazole 40 MG TAB PO SCH (08:10)
[2020-11-06] MEDS: METOPROLOL SUCC 25MG EXT REL TAB PO SCH (08:11)
[2020-11-06] MEDS ORDERED: LOPERAMIDE HCL 2 MG CAP PO ONE (08:27)
[2020-11-06] MEDS: LORazepam 1 MG TAB PO PRN ×2 (08:58→18:54)
[2020-11-06] MEDS ORDERED: LOPERAMIDE HCL 2 MG CAP PO PRN (15:42)
--- NOTE | 2020-11-06 17:59 | Electrocardiogram Report ---
Test Reason : Blood Pressure : / mmHG Vent. Rate : 073 BPM Atrial Rate : 073 BPM P-R Int : 130 ms QRS Dur : 094 ms QT Int : 386 ms P-R-T Axes : -10 -26 007 degrees QTc Int : 425 ms Normal sinus rhythm Voltage criteria for left ventricular hypertrophy Nonspecific ST abnormality Abnormal ECG When compared with ECG of 29-JAN-2017 10:38, Nonspecific T wave abnormality now evident in Anterior leads Confirmed by Leroy Hernandez ([id number]) on 11/06/2020 5:58:48 PM Referred By: REFERRED SELF Confirmed By:Geovanny Hernandez
[2020-11-06] MEDS: SERTRALINE HCL 50 MG TABLET PO SCH (21:10)
[2020-11-06] MEDS: FAMOTIDINE 40 MG TABLET PO SCH (21:11)
--- NOTE | 2020-11-06 21:33 | Hospitalist Progress Note ---
Date of Service November 06, 2020 Assessment & Plan (1) Pneumonia: Rocephin, doxycycline, blood cultures, cont oxygen supplementation as needed. Clinical picture is consistent with a viral source with loss of taste and smell and GI symptoms in the middle of a local wave of airborne novel yulissa navirus. Procalcitonin also negative. So continue airborne isolation and will continue with daily decadron as this is known to improve mortality in C-19, which clinically this is consistent with. Biofire panel nasal swab in am. Clinically improved overall. (2) Hypoxia: 2/2 above. Wean as tolerated with improvement. (3) Diarrhea: likely 2/2 viral etiology. Imodium PRN, oral rehydration with Powerade and IVF. cont supportive care. (4) Anxiety: Cont sertraline per home regimen. (5) DVT prophylaxis: Lovenox Full Code Dispo-to home in a few days. Savita Cabrera DO [facility] Hospitalist Admission and Anticipated Discharge Date Admission Date: November 05, 2020 Subjective cc: covid-like syndrome x 5 days -loss of taste and smell -severe diarrhea today improved with oral rehydration efforts and imodium -she reports feeling somewhat better -crampy abdominal pain -fatigue, malaise, n/v has resolved -initial covid test is negative. Review of Systems Review of Systems: All systems reviewed & are unremarkable except as noted in Subjective Physical Exam Physical Exam: CONSTITUTIONAL: WNWD, vitals as above, NAD EYES: normal conjunctivae, no scleral icterus ENT: external ear and nose normal, MMM RESPIRATORY: crackles at right base ,otherwise moving air well and clear to auscultation. No wheezing or increased respiratory effort CARDIOVASCULAR: regular rate and rhythm, S1 and 2 heard without murmurs, gallops or rubs, no JVD, no peripheral edema GASTROINTESTINAL: soft, nontender, nondistended, no guarding MUSCULOSKELETAL: strength 5/5 throughout, head is normocephalic and atraumatic SKIN: warm and dry NEUROLOGIC: CN 2-12 grossly intact, normal cognition PSYCHIATRIC: alert cooperative and oriented to person, place and time. Results & Data Results & Data ([facility]) Vital Signs (Past 12 Hours) Vital Signs Temp Pulse Pulse Resp BP Pulse Ox 11/06/20 19:06 36.9 C 54 L 18 110/68 96 11/06/20 15:05 64 11/06/20 14:37 36.6 C 48 L 20 130/85 95 11/06/20 11:32 36.8 C 45 L 20 112/69 97 11/06/20 09:33 52 L Laboratory Results Short CBC 11/06/20 Range/Units 06:23 WBC 6.09 (4.8-10.8) K/uL Hgb 12.7 (12.0-16.0) g/dL Hct 38.2 (37-47) % Plt Count 253 (130-400) K/uL BMP 11/05/20 11/06/20 20:50 06:23 Sodium 141 142 Potassium 3.3 L 4.2 D Chloride 109 H 114 H Carbon Dioxide 22 24 BUN 10 10 Creatinine 0.75 0.90 Glucose 111 H 112 H Calcium 9.2 8.6 Cardiac Enzymes 11/05/20 Range/Units 20:50 Troponin I < 0.015 (0-0.045) ng/ml Liver Function 11/05/20 Range/Units 20:50 Total Bilirubin 0.4 (0.2-1) mg/dl AST 25 (15-37) U/L ALT 30 (12-78) U/L Alkaline Phosphatase 96 (45-117) U/L Albumin 3.4 (3.4-5.0) gm/dl Urine 11/05/20 Range/Units 22:10 Urine Color Yellow Urine Appearance Clear (Clear) Urine pH 6.5 (4.5-7.5) Ur Specific [place] 1.017 (1.000-1.030) Urine Protein Negative (Negative) Urine Glucose (UA) Negative (Negative) Medications Administered Current Inpatient Medications Acetaminophen (Acetaminophen 325 Mg Tab) 650 mg PO Q4H PRN PRN Reason: Pain or Fever Stop: 12/06/20 00:57 Albuterol (Albut/Ipratrop 3mg/0.5mg Neb 3 Ml Vial) 3 ml NEB Q2H PRN PRN Reason: Wheezing Stop: 12/06/20 00:57 Doxycycline Hyclate (Doxycycline Hyclate 100 Mg Cap) 100 mg PO BID [facility] Stop: 11/13/20 08:59 Last Admin: 11/06/20 21:10 Dose: 100 mg Documented by: Enoxaparin Sodium (Enoxaparin Inj 30 Mg/0.3 Ml Syr) 30 mg SQ QAM [facility] Stop: 12/06/20 08:59 Last Admin: 11/06/20 08:09 Dose: 30 mg Documented by: Famotidine (Famotidine 40 Mg Tablet) 40 mg PO HS [facility] Stop: 12/06/20 20:59 Last Admin: 11/06/20 21:11 Dose: 40 mg Documented by: Promethazine HCl 6.25 mg/ (Sodium Chloride) 50.25 mls @ 201 mls/hr IV Q6H PRN PRN Reason: Nausea And Vomiting Stop: 12/06/20 00:57 Ceftriaxone Sodium 2,000 mg/ (Dextrose) 70 mls @ 100 mls/hr IV Q24H [facility]; Protocol Stop: 11/13/20 21:59 Last Admin: 11/06/20 21:11 Dose: 100 mls/hr Documented by: Dexamethasone Sodium Phosphate (6 mg/ Syringe) 1.5 mls @ 1 mls/min IV DAILY [facility] Stop: 12/07/20 08:59 Sodium Chloride (Nss 1000ml) 1,000 mls @ 150 mls/hr IV .Q6H40M [facility] Stop: 11/07/20 10:49 Loperamide HCl (Loperamide Hcl 2 Mg Cap) 2 mg PO UD PRN PRN Reason: Loose Stool Stop: 12/06/20 15:41 Last Admin: 11/06/20 16:43 Dose: 2 mg Documented by: Lorazepam (Lorazepam 1 Mg Tab) 1 mg PO TID PRN PRN Reason: Anxiety Stop: 12/06/20 01:40 Last Admin: 11/06/20 18:54 Dose: 1 mg Documented by: Metoprolol Succinate (Metoprolol Succ 25mg Ext Rel Tab) 25 mg PO DAILY [facility] Stop: 12/06/20 08:59 Last Admin: 11/06/20 08:11 Dose: Not Given Documented by: Pantoprazole Sodium (Pantoprazole 40 Mg Tab) 40 mg PO QAM [facility] Stop: 12/06/20 08:59 Last Admin: 11/06/20 08:10 Dose: 40 mg Documented by: Sertraline HCl (Sertraline Hcl 50 Mg Tablet) 25 mg PO [facility] Stop: 12/06/20 20:59 Last Admin: 11/06/20 21:10 Dose: 25 mg Documented by: Tramadol HCl (Tramadol Hcl 50 Mg Tablet) 25 - 50 mg PO Q4H PRN PRN Reason: Pain Stop: 12/06/20 00:57 Last Admin: 11/06/20 12:48 Dose: 50 mg Documented by: (1) Pneumonia Laterality: bilateral Lung location: unspecified part of lung Pneumonia type: due to unspecified organism Qualified Code(s): J18.9 - Pneumonia, unspecified organism
[2020-11-06] MEDS ORDERED: cefTRIAXone SODIUM 2,000 MG in DEXTROSE 5% 50 ML IV SCH (22:00)
[2020-11-06] MEDS: SODIUM CHLORIDE 0.9% 1000ML 1,000 ML IV SCH (22:02)
[2020-11-07] MEDS: SODIUM CHLORIDE 0.9% 1000ML 1,000 ML IV SCH (04:58)
[2020-11-07 05:53] LABS: Estimated Average Glucose 123 mg/dl; Hemoglobin A1C 5.9 % (4.5-5.6)
[2020-11-07 07:41] LABS: Hematocrit (blood only) 35.3 % (37-47); Hemoglobin 11.6 g/dL (12.0-16.0); Mean Corpuscular Hemoglobin 30.1 pg (25-34); Mean Corpuscular Hgb Conc 32.9 g/dL (32-36); Mean Corpuscular Volume 91.5 fL (80-100); Mean Platelet Volume 8.4 fL (7.4-10.4); Platelet Count 222 K/uL (130-400); RDW Standard Deviation 43.6 fL (36.4-46.3); Red Blood Count 3.86 M/uL (4.2-5.4); White Blood Count 5.72 K/uL (4.8-10.8)
[2020-11-07] MEDS: dexAMETHasone 6 MG in SYRINGE 0 ML IV SCH (08:17)
[2020-11-07] MEDS: ENOXAPARIN INJ 30 MG/0.3 ML SYR SQ SCH (08:17)
[2020-11-07] MEDS: PANTOprazole 40 MG TAB PO SCH (08:18)
[2020-11-07] MEDS: DOXYCYCLINE HYCLATE 100 MG CAP PO SCH (08:18)
[2020-11-07] MEDS: METOPROLOL SUCC 25MG EXT REL TAB PO SCH (08:18)
[2020-11-07 08:23] LABS: BUN Creatinine Ratio 5.9 (10-20); C Reactive Protein 1.43 mg/dl (0-0.29); Calcium 8.5 mg/dl (8.5-10.1); Creatinine Clr Calc Pharmacy 86.6 ml/min; Est GFR (African American) 115.6; Est GFR (Non-African American) 99.8; Magnesium 1.9 mg/dl (1.8-2.4); Phosphorus 3.8 mg/dl (2.5-4.9); Potassium 3.7 mmol/L (3.5-5.1)
[2020-11-07] MEDS ORDERED: D5W AND 1/2NSS 1,000 ML IV SCH (10:30)
[2020-11-07] MEDS: LORazepam 1 MG TAB PO PRN ×2 (12:23→20:18)
--- NOTE | 2020-11-07 13:18 | Hospitalist Progress Note ---
Date of Service November 07, 2020 Assessment & Plan (1) Pneumonia due to COVID-19 virus: Biofire repeat was positive for COVID. Cont dexamethasone, started remdesivir. Patient declined convalescent plasma. Trend CRP. Stop antibiotics as this may be contributing to her diarrhea. (2) Hypoxia: 2/2 above. Wean as tolerated with improvement. (3) Diarrhea: likely 2/2 viral etiology. Imodium PRN, oral rehydration with Powerade and IVF. cont supportive care. (4) Headache: Ibuprofen PRN (5) Anxiety: Cont sertraline per home regimen. (6) DVT prophylaxis: Lovenox Full Code Dispo-to home in a few days. Savita Cabrera DO [facility] Hospitalist Admission and Anticipated Discharge Date Admission Date: November 05, 2020 Subjective cc: covid-like syndrome x 5 days diarrhea persists Biofire shows covid is positive spoke with son and patient regarding treatment options started remdesivir pt reports excessive urination on the IVF, which were stopped she would like to advance her diet Review of Systems Review of Systems: All systems reviewed & are unremarkable except as noted in Subjective Physical Exam Physical Exam: CONSTITUTIONAL: WNWD, vitals as above, NAD EYES: normal conjunctivae, no scleral icterus ENT: external ear and nose normal, MMM RESPIRATORY: clear to auscultation throughout, No wheezing or increased respiratory effort CARDIOVASCULAR: regular rate and rhythm, S1 and 2 heard without murmurs, gallops or rubs, no JVD, no peripheral edema GASTROINTESTINAL: soft, nontender, nondistended, no guarding MUSCULOSKELETAL: strength 5/5 throughout, head is normocephalic and atraumatic SKIN: warm and dry NEUROLOGIC: CN 2-12 grossly intact, normal cognition PSYCHIATRIC: alert cooperative and oriented to person, place and time. Results & Data Results & Data ([facility]) Vital Signs (Past 12 Hours) Vital Signs Temp Pulse Resp BP BP Pulse Ox 11/07/20 12:06 37.0 C 52 L 20 127/75 95 11/07/20 06:26 36.7 C 49 L 20 98/75 L 94 11/07/20 03:00 36.8 C 48 L 20 105/69 96 Laboratory Results Short CBC 11/07/20 Range/Units 07:26 WBC 5.72 (4.8-10.8) K/uL Hgb 11.6 L (12.0-16.0) g/dL Hct 35.3 L (37-47) % Plt Count 222 (130-400) K/uL [facility] 11/07/20 07:26 Sodium 146 H Potassium 3.7 Chloride 116 H Carbon Dioxide 25 BUN 4 L D Creatinine 0.64 Glucose 91 Calcium 8.5 Medications Administered Current Inpatient Medications Acetaminophen (Acetaminophen 325 Mg Tab) 650 mg PO Q4H PRN PRN Reason: Pain or Fever Stop: 12/06/20 00:57 Albuterol (Albut/Ipratrop 3mg/0.5mg Neb 3 Ml Vial) 3 ml NEB Q2H PRN PRN Reason: Wheezing Stop: 12/06/20 00:57 Doxycycline Hyclate (Doxycycline Hyclate 100 Mg Cap) 100 mg PO BID [facility] Stop: 11/13/20 08:59 Last Admin: 11/07/20 08:18 Dose: 100 mg Documented by: Enoxaparin Sodium (Enoxaparin Inj 30 Mg/0.3 Ml Syr) 30 mg SQ QAM [facility] Stop: 12/06/20 08:59 Last Admin: 11/07/20 08:17 Dose: 30 mg Documented by: Famotidine (Famotidine 40 Mg Tablet) 40 mg PO HS [facility] Stop: 12/06/20 20:59 Last Admin: 11/06/20 21:11 Dose: 40 mg Documented by: Promethazine HCl 6.25 mg/ (Sodium Chloride) 50.25 mls @ 201 mls/hr IV Q6H PRN PRN Reason: Nausea And Vomiting Stop: 12/06/20 00:57 Ceftriaxone Sodium 2,000 mg/ (Dextrose) 70 mls @ 100 mls/hr IV Q24H [facility]; Protocol Stop: 11/13/20 21:59 Last Infusion: 11/06/20 22:00 Dose: Infused Documented by: Dexamethasone Sodium Phosphate (6 mg/ Syringe) 1.5 mls @ 1 mls/min IV DAILY [facility] Stop: 12/07/20 08:59 Last Admin: 11/07/20 08:17 Dose: 1 mls/min Documented by: Dextrose/Sodium Chloride (D5w And 1/2nss) 1,000 mls @ 125 mls/hr IV .Q8H [facility] Stop: 11/08/20 02:29 Last Admin: 11/07/20 10:42 Dose: 125 mls/hr Documented by: Loperamide HCl (Loperamide Hcl 2 Mg Cap) 2 mg PO UD PRN PRN Reason: Loose Stool Stop: 12/06/20 15:41 Last Admin: 11/06/20 16:43 Dose: 2 mg Documented by: Lorazepam (Lorazepam 1 Mg Tab) 1 mg PO TID PRN PRN Reason: Anxiety Stop: 12/06/20 01:40 Last Admin: 11/07/20 12:23 Dose: 1 mg Documented by: Metoprolol Succinate (Metoprolol Succ 25mg Ext Rel Tab) 25 mg PO DAILY [facility] Stop: 12/06/20 08:59 Last Admin: 11/07/20 08:18 Dose: 25 mg Documented by: Pantoprazole Sodium (Pantoprazole 40 Mg Tab) 40 mg PO QAM [facility] Stop: 12/06/20 08:59 Last Admin: 11/07/20 08:18 Dose: 40 mg Documented by: Sertraline HCl (Sertraline Hcl 50 Mg Tablet) 25 mg PO HS [facility] Stop: 12/06/20 20:59 Last Admin: 11/06/20 21:10 Dose: 25 mg Documented by: Tramadol HCl (Tramadol Hcl 50 Mg Tablet) 25 - 50 mg PO Q4H PRN PRN Reason: Pain Stop: 12/06/20 00:57 Last Admin: 11/06/20 22:05 Dose: 50 mg Documented by:
[2020-11-07 15:20] LABS: Adenovirus PCR Not Detected (NotDetected); Bordetella parapertussis PCR Not Detected (NotDetected); Bordetella pertussis PCR Not Detected (NotDetected); Chlamydia pneumoniae PCR Not Detected (NotDetected); Coronavirus 229E PCR Not Detected (NotDetected); Coronavirus HKU1 PCR Not Detected (NotDetected); Coronavirus NL63 PCR Not Detected (NotDetected); Coronavirus OC43PCR Not Detected (NotDetected); Human Metapneumovirus PCR Not Detected (NotDetected); Influenza A PCR Not Detected (NotDetected); Influenza B PCR Not Detected (NotDetected); Mycoplasma pneumoniae PCR Not Detected (NotDetected); Parainfluenza Virus 1 PCR Not Detected (NotDetected); Parainfluenza Virus 2 PCR Not Detected (NotDetected); Parainfluenza Virus 3 PCR Not Detected (NotDetected); Parainfluenza Virus 4 PCR Not Detected (NotDetected); Respiratory Syncytial VirusPCR Not Detected (NotDetected); Rhinovirus/Enterovirus PCR Not Detected (NotDetected)
[2020-11-07 15:28] LABS: Coronavirus CoV-2 (COVID19)PCR DETECTED (NotDetected)
[2020-11-07] MEDS ORDERED: IBUPROFEN 600 MG TAB PO STA (15:44)
[2020-11-07] MEDS ORDERED: LOPERAMIDE HCL 2 MG CAP PO STA (15:44)
[2020-11-07] MEDS: SODIUM CHLORIDE 0.9% 10ML FLUSH IV SCH (15:56)
[2020-11-07] MEDS ORDERED: REMDESIVIR 200 MG in SODIUM CHLORIDE 0.9% 210 ML IV ONE (16:00)
[2020-11-07] MEDS: FAMOTIDINE 40 MG TABLET PO SCH (20:14)
[2020-11-07] MEDS: SERTRALINE HCL 50 MG TABLET PO SCH (20:15)
[2020-11-08 07:41] LABS: Hematocrit (blood only) 35.5 % (37-47); Hemoglobin 12.2 g/dL (12.0-16.0); Mean Corpuscular Hemoglobin 30.5 pg (25-34); Mean Corpuscular Hgb Conc 34.4 g/dL (32-36); Mean Corpuscular Volume 88.8 fL (80-100); Mean Platelet Volume 8.8 fL (7.4-10.4); Platelet Count 269 K/uL (130-400); RDW Coefficient of Variation 12.5 % (11.5-14.5); RDW Standard Deviation 40.2 fL (36.4-46.3); White Blood Count 5.52 K/uL (4.8-10.8)
[2020-11-08 08:15] LABS: BUN Creatinine Ratio 15.1 (10-20); C Reactive Protein 1.15 mg/dl (0-0.29); Calcium 8.6 mg/dl (8.5-10.1); Est GFR (African American) 114.5; Est GFR (Non-African American) 98.8; Phosphorus 3.8 mg/dl (2.5-4.9); Potassium 3.1 mmol/L (3.5-5.1)
[2020-11-08] MEDS: ENOXAPARIN INJ 30 MG/0.3 ML SYR SQ SCH (08:59)
[2020-11-08] MEDS: dexAMETHasone 6 MG in SYRINGE 0 ML IV SCH (08:59)
[2020-11-08] MEDS: PANTOprazole 40 MG TAB PO SCH (09:00)
[2020-11-08] MEDS: LORazepam 1 MG TAB PO PRN ×2 (09:04→20:39)
[2020-11-08] MEDS: POTASSIUM CHLORIDE CRTAB 20 MEQ TABCR PO SCH ×2 (09:04→16:49)
[2020-11-08] MEDS: IBUPROFEN 600 MG TAB PO PRN (09:04)
--- NOTE | 2020-11-08 17:31 | Hospitalist Progress Note ---
Date of Service November 08, 2020 Assessment & Plan (1) Pneumonia due to COVID-19 virus: Biofire repeat was positive for COVID. Cont remdesivir, she is having side effects to the decadron so will stop this now. Patient declined convalescent plasma. Trend CRP which has improved today and so has clinical picture. Antibiotics were stopped and diarrhea has resolved. (2) Hypoxia: 2/2/ covid pnemonia-resolved. (3) Diarrhea: likely 2/2 viral etiology. Imodium PRN, oral rehydration with Powerade and IVF. resolved. (4) Headache: Resolved, Ibuprofen PRN (5) Anxiety: Cont sertraline per home regimen. Steroids stopped as these are having side effects for her. (6) DVT prophylaxis: Lovenox Full Code Dispo-to home in a few days. [facility] Admission and Anticipated Discharge Date Admission Date: November 05, 2020 Subjective cc: covid-like syndrome x 5 days diarrhea has resolved. improved and hypoxia has resolved slightly SOB with exertion cough has improved tolerating PO reports feeling emotional and having some insomnia-we discussed steroid side effects. Review of Systems Review of Systems: All systems reviewed & are unremarkable except as noted in Subjective Physical Exam Physical Exam: CONSTITUTIONAL: WNWD, vitals as above, NAD EYES: normal conjunctivae, no scleral icterus ENT: external ear and nose normal, MMM RESPIRATORY: clear to auscultation throughout, No wheezing or increased respiratory effort CARDIOVASCULAR: regular rate and rhythm, S1 and 2 heard without murmurs, gallops or rubs, no JVD, no peripheral edema GASTROINTESTINAL: soft, nontender, nondistended, no guarding MUSCULOSKELETAL: strength 5/5 throughout, head is normocephalic and atraumatic SKIN: warm and dry NEUROLOGIC: CN 2-12 grossly intact, normal cognition PSYCHIATRIC: alert cooperative and oriented to person, place and time. Results & Data Results & Data ([facility]) Vital Signs (Past 12 Hours) Vital Signs Temp Pulse Resp BP Pulse Ox 11/08/20 16:05 36.8 C 58 L 20 120/73 94 11/08/20 07:44 36.8 C 54 L 18 136/74 91 11/08/20 07:30 57 L 98 Laboratory Results Short CBC 11/08/20 Range/Units 06:44 WBC 5.52 (4.8-10.8) K/uL Hgb 12.2 (12.0-16.0) g/dL Hct 35.5 L (37-47) % Plt Count 269 (130-400) K/uL [facility] 11/08/20 06:44 Sodium 142 Potassium 3.1 L D Chloride 109 H Carbon Dioxide 27 BUN 10 D Creatinine 0.66 Glucose 86 Calcium 8.6 Medications Administered Current Inpatient Medications Acetaminophen (Acetaminophen 325 Mg Tab) 650 mg PO Q4H PRN PRN Reason: Pain or Fever Stop: 12/06/20 00:57 Albuterol (Albut/Ipratrop 3mg/0.5mg Neb 3 Ml Vial) 3 ml NEB Q2H PRN PRN Reason: Wheezing Stop: 12/06/20 00:57 Enoxaparin Sodium (Enoxaparin Inj 30 Mg/0.3 Ml Syr) [facility] Stop: 12/06/20 08:59 Last Admin: 11/08/20 08:59 Dose: 30 mg Documented by: Famotidine (Famotidine 40 Mg Tablet) [address] [facility] Stop: 12/06/20 20:59 Last Admin: 11/07/20 20:14 Dose: 40 mg Documented by: Promethazine HCl 6.25 mg/ (Sodium Chloride) 50.25 mls @ 201 mls/hr IV Q6H PRN PRN Reason: Nausea And Vomiting Stop: 12/06/20 00:57 Remdesivir 100 mg/ Sodium (Chloride) 250 mls @ 250 mls/hr IV Q24H [facility]; Protocol Stop: 11/11/20 20:59 Ibuprofen (Ibuprofen 600 Mg Tab) 600 mg PO Q8H PRN PRN Reason: pain/headache/fever Stop: 12/07/20 15:43 Last Admin: 11/08/20 09:04 Dose: 600 mg Documented by: Loperamide HCl (Loperamide Hcl 2 Mg Cap) 2 mg PO UD PRN PRN Reason: Loose Stool Stop: 12/06/20 15:41 Last Admin: 11/06/20 16:43 Dose: 2 mg Documented by: Lorazepam (Lorazepam 1 Mg Tab) 1 mg PO TID PRN PRN Reason: Anxiety Stop: 12/06/20 01:40 Last Admin: 11/08/20 09:04 Dose: 1 mg Documented by: Metoprolol Succinate (Metoprolol Succ 25mg Ext Rel Tab) 25 mg PO DAILY [facility] Stop: 12/06/20 08:59 Last Admin: 11/07/20 08:18 Dose: 25 mg Documented by: Pantoprazole Sodium (Pantoprazole 40 Mg Tab) 40 mg PO QAM [facility] Stop: 12/06/20 08:59 Last Admin: 11/08/20 09:00 Dose: 40 mg Documented by: Sertraline HCl (Sertraline Hcl 50 Mg Tablet) 25 mg PO HS [facility] Stop: 12/06/20 20:59 Last Admin: 11/07/20 20:15 Dose: 25 mg Documented by: Sodium Chloride (Sodium Chloride 0.9% 10ml Flush) 30 ml IV Q24H [facility] Stop: 11/11/20 21:01 Last Admin: 11/07/20 15:56 Dose: 30 ml Documented by: Tramadol HCl (Tramadol Hcl 50 Mg Tablet) 25 - 50 mg PO Q4H PRN PRN Reason: Pain Stop: 12/06/20 00:57 Last Admin: 11/06/20 22:05 Dose: 50 mg Documented by:
[2020-11-08] MEDS: REMDESIVIR 100 MG in SODIUM CHLORIDE 0.9% 230 ML IV SCH (20:27)
[2020-11-08] MEDS: SODIUM CHLORIDE 0.9% 10ML FLUSH IV SCH (21:34)
[2020-11-08] MEDS: FAMOTIDINE 40 MG TABLET PO SCH (21:35)
[2020-11-08] MEDS: SERTRALINE HCL 50 MG TABLET PO SCH (21:35)
[2020-11-09] MEDS: LORazepam 1 MG TAB PO PRN ×4 (06:09→23:37)
[2020-11-09 09:02] LABS: Creatinine Clr Calc Pharmacy 79.2 ml/min; Est GFR (African American) 112.3; Est GFR (Non-African American) 96.9
[2020-11-09] MEDS: ENOXAPARIN INJ 30 MG/0.3 ML SYR SQ SCH (09:14)
[2020-11-09] MEDS: PANTOprazole 40 MG TAB PO SCH (09:14)
[2020-11-09] MEDS: IBUPROFEN 600 MG TAB PO PRN ×2 (13:54→19:36)
[2020-11-09] MEDS: REMDESIVIR 100 MG in SODIUM CHLORIDE 0.9% 230 ML IV SCH (20:32)
[2020-11-09] MEDS: FAMOTIDINE 40 MG TABLET PO SCH (20:33)
[2020-11-09] MEDS: SERTRALINE HCL 50 MG TABLET PO SCH (20:33)
[2020-11-09] MEDS: MELATONIN 3 MG TAB PO PRN (21:36)
[2020-11-09] MEDS: traMADol HCL 50 MG TABLET PO PRN (21:36)
[2020-11-09] MEDS: SODIUM CHLORIDE 0.9% 10ML FLUSH IV SCH (21:36)
--- NOTE | 2020-11-09 23:35 | Hospitalist Progress Note ---
Date of Service November 09, 2020 Assessment & Plan (1) Pneumonia due to COVID-19 virus: Biofire repeat was positive for COVID. Cont remdesivir, she is having side effects to the decadron so this was stopped. Patient declined convalescent plasma. Trend CRP which has improved today and so has clinical picture. Antibiotics were stopped and diarrhea has resolved. (2) Hypoxia: 2/2 covid pneumonia-resolved. (3) Diarrhea: likely 2/2 viral etiology. Imodium PRN, oral rehydration with Powerade and IVF. resolved. (4) Headache: Resolved, Ibuprofen PRN (5) Anxiety: Cont sertraline per home regimen. Steroids stopped as these are having side effects for her. (6) DVT prophylaxis: Lovenox Full Code Dispo-to home in a few days. [facility] Admission and Anticipated Discharge Date Admission Date: November 05, 2020 Subjective cc: covid-like syndrome x 5 days diarrhea has resolved. improved and hypoxia has resolved no SOB with exertion and she is feeling well. Review of Systems Review of Systems: All systems reviewed & are unremarkable except as noted in Subjective Physical Exam Physical Exam: CONSTITUTIONAL: WNWD, vitals as above, NAD EYES: normal conjunctivae, no scleral icterus ENT: external ear and nose normal, MMM RESPIRATORY: clear to auscultation throughout, No wheezing or increased respiratory effort CARDIOVASCULAR: regular rate and rhythm, S1 and 2 heard without murmurs, gallops or rubs, no JVD, no peripheral edema GASTROINTESTINAL: soft, nontender, nondistended, no guarding MUSCULOSKELETAL: strength 5/5 throughout, head is normocephalic and atraumatic SKIN: warm and dry NEUROLOGIC: CN 2-12 grossly intact, normal cognition PSYCHIATRIC: alert cooperative and oriented to person, place and time. Results & Data Results & Data ([facility]) Vital Signs (Past 12 Hours) Vital Signs Temp Pulse Resp BP Pulse Ox 11/09/20 15:25 36.7 C 59 L 16 112/74 94 Laboratory Results [facility] 11/09/20 07:40 Creatinine 0.70 Liver Function 11/09/20 Range/Units 07:40 AST 16 (15-37) U/L ALT 21 (12-78) U/L Medications Administered Current Inpatient Medications Acetaminophen (Acetaminophen 325 Mg Tab) 650 mg PO Q4H PRN PRN Reason: Pain or Fever Stop: 12/06/20 00:57 Albuterol (Albut/Ipratrop 3mg/0.5mg Neb 3 Ml Vial) 3 ml NEB Q2H PRN PRN Reason: Wheezing Stop: 12/06/20 00:57 Enoxaparin Sodium (Enoxaparin Inj 30 Mg/0.3 Ml Syr) 30 mg SQ QAM [facility] Stop: 12/06/20 08:59 Last Admin: 11/09/20 09:14 Dose: 30 mg Documented by: Famotidine (Famotidine 40 Mg Tablet) 40 mg PO HS [facility] Stop: 12/06/20 20:59 Last Admin: 11/09/20 20:33 Dose: 40 mg Documented by: Promethazine HCl 6.25 mg/ (Sodium Chloride) 50.25 mls @ 201 mls/hr IV Q6H PRN PRN Reason: Nausea And Vomiting Stop: 12/06/20 00:57 Remdesivir 100 mg/ Sodium (Chloride) 250 mls @ 250 mls/hr IV Q24H [facility]; Protocol Stop: 11/11/20 20:59 Last Infusion: 11/09/20 21:36 Dose: Infused Documented by: Ibuprofen (Ibuprofen 600 Mg Tab) 600 mg PO Q8H PRN PRN Reason: pain/headache/fever Stop: 12/07/20 15:43 Last Admin: 11/09/20 19:36 Dose: 600 mg Documented by: Loperamide HCl (Loperamide Hcl 2 Mg Cap) 2 mg PO UD PRN PRN Reason: Loose Stool Stop: 12/06/20 15:41 Last Admin: 11/06/20 16:43 Dose: 2 mg Documented by: Lorazepam (Lorazepam 1 Mg Tab) 1 mg PO TID PRN PRN Reason: Anxiety Stop: 12/06/20 01:40 Last Admin: 11/09/20 13:55 Dose: 1 mg Documented by: Melatonin (Melatonin 3 Mg Tab) 3 mg PO HS PRN PRN Reason: Sleep Stop: 12/09/20 21:04 Last Admin: 11/09/20 21:36 Dose: 3 mg Documented by: Metoprolol Succinate (Metoprolol Succ 25mg Ext Rel Tab) 25 mg PO DAILY [facility] Stop: 12/06/20 08:59 Last Admin: 11/07/20 08:18 Dose: 25 mg Documented by: Pantoprazole Sodium (Pantoprazole 40 Mg Tab) 40 mg PO QAM [facility] Stop: 12/06/20 08:59 Last Admin: 11/09/20 09:14 Dose: 40 mg Documented by: Sertraline HCl (Sertraline Hcl 50 Mg Tablet) 25 mg PO HS [facility] Stop: 12/06/20 20:59 Last Admin: 11/09/20 20:33 Dose: 25 mg Documented by: Sodium Chloride (Sodium Chloride 0.9% 10ml Flush) 30 ml IV Q24H [facility] Stop: 11/11/20 21:01 Last Admin: 11/09/20 21:36 Dose: 30 ml Documented by: Tramadol HCl (Tramadol Hcl 50 Mg Tablet) 25 - 50 mg PO Q4H PRN PRN Reason: Pain Stop: 12/06/20 00:57 Last Admin: 11/09/20 21:36 Dose: 50 mg Documented by:
[2020-11-10 08:46] LABS: Alanine Aminotransferase 18 U/L (12-78); Aspartate Aminotransferase 15 U/L (15-37)
[2020-11-10] MEDS: ENOXAPARIN INJ 30 MG/0.3 ML SYR SQ SCH (09:14)
[2020-11-10] MEDS: PANTOprazole 40 MG TAB PO SCH (09:14)
[2020-11-10] MEDS: traMADol HCL 50 MG TABLET PO PRN ×2 (09:15→20:35)
[2020-11-10] MEDS ORDERED: IBUPROFEN 800 MG TAB PO STA (13:55)
--- NOTE | 2020-11-10 14:19 | Hospitalist Progress Note ---
Date of Service November 10, 2020 Assessment & Plan (1) Pneumonia due to COVID-19 virus: Biofire repeat was positive for COVID. Cont remdesivir, she is having side effects to the decadron so this was stopped. Patient declined convalescent plasma. Trend CRP which has improved today and so has clinical picture. Antibiotics were stopped and diarrhea has resolved. Repeat CXR in 4-6 weeks as outpatient to ensure complete resolution of pneumonia. (2) Hypoxia: 2/2 covid pneumonia-resolved. (3) Diarrhea: likely 2/2 viral etiology. Imodium PRN, oral rehydration with Powerade and IVF. resolved. (4) Headache: Reoccurrence today which is making her feel too ill for discharge home, Ibuprofen PRN (5) Anxiety: Cont sertraline per home regimen. Steroids stopped as these are having side effects for her. (6) DVT prophylaxis: Lovenox Full Code Dispo-to home in am. Pt lives alone. Will not need services. Please contact her son, Bird for updates. [facility] Discharge Date Admission Date: November 05, 2020 Subjective cc: covid-like syndrome x 5 days Patient has a headache since she woke up this morning that is painful-tried Tramadol unsuccessfully no diarrhea denies pain denies SOB Review of Systems Review of Systems: All systems reviewed & are unremarkable except as noted in Subjective Physical Exam Physical Exam: CONSTITUTIONAL: WNWD, vitals as above, NAD EYES: normal conjunctivae, no scleral icterus ENT: external ear and nose normal, MMM RESPIRATORY: clear to auscultation throughout, No wheezing or increased respiratory effort CARDIOVASCULAR: regular rate and rhythm, S1 and 2 heard without murmurs, gallops or rubs, no JVD, no peripheral edema GASTROINTESTINAL: soft, nontender, nondistended, no guarding MUSCULOSKELETAL: strength 5/5 throughout, head is normocephalic and atraumatic SKIN: warm and dry NEUROLOGIC: CN 2-12 grossly intact, normal cognition PSYCHIATRIC: alert cooperative and oriented to person, place and time. Results & Data Results & Data ([facility]) Vital Signs (Past 12 Hours) Vital Signs Temp Pulse Resp BP Pulse Ox 11/10/20 07:17 36.8 C 55 L 18 110/72 91 Laboratory Results Liver Function 11/10/20 Range/Units 06:45 AST 15 (15-37) U/L ALT 18 (12-78) U/L Medications Administered Current Inpatient Medications Acetaminophen (Acetaminophen 325 Mg Tab) 650 mg PO Q4H PRN PRN Reason: Pain or Fever Stop: 12/06/20 00:57 Albuterol (Albut/Ipratrop 3mg/0.5mg Neb 3 Ml Vial) 3 ml NEB Q2H PRN PRN Reason: Wheezing Stop: 12/06/20 00:57 Enoxaparin Sodium (Enoxaparin Inj 30 Mg/0.3 Ml Syr) 30 mg SQ QAM [facility] Stop: 12/06/20 08:59 Last Admin: 11/10/20 09:14 Dose: 30 mg Documented by: Famotidine (Famotidine 40 Mg Tablet) 40 mg PO HS [facility] Stop: 12/06/20 20:59 Last Admin: 11/09/20 20:33 Dose: 40 mg Documented by: Promethazine HCl 6.25 mg/ (Sodium Chloride) 50.25 mls @ 201 mls/hr IV Q6H PRN PRN Reason: Nausea And Vomiting Stop: 12/06/20 00:57 Remdesivir 100 mg/ Sodium (Chloride) 250 mls @ 250 mls/hr IV Q24H [facility]; Protocol Stop: 11/11/20 20:59 Last Infusion: 11/09/20 21:36 Dose: Infused Documented by: Ibuprofen (Ibuprofen 600 Mg Tab) 600 mg PO Q8H PRN PRN Reason: pain/headache/fever Stop: 12/07/20 15:43 Last Admin: 11/09/20 19:36 Dose: 600 mg Documented by: Loperamide HCl (Loperamide Hcl 2 Mg Cap) 2 mg PO UD PRN PRN Reason: Loose Stool Stop: 12/06/20 15:41 Last Admin: 11/06/20 16:43 Dose: 2 mg Documented by: Lorazepam (Lorazepam 1 Mg Tab) 1 mg PO TID PRN PRN Reason: Anxiety Stop: 12/06/20 01:40 Last Admin: 11/09/20 23:37 Dose: 1 mg Documented by: Melatonin (Melatonin 3 Mg Tab) 3 mg PO HS PRN PRN Reason: Sleep Stop: 12/09/20 21:04 Last Admin: 11/09/20 21:36 Dose: 3 mg Documented by: Metoprolol Succinate (Metoprolol Succ 25mg Ext Rel Tab) 12.5 mg PO QAM [facility] Stop: 12/11/20 08:59 Pantoprazole Sodium (Pantoprazole 40 Mg Tab) [facility] Stop[facility] 12/06/20 08:59 Last Admin: 11/10/20 09:14 Dose: 40 mg Documented by: Sertraline HCl (Sertraline Hcl 50 Mg Tablet) 25 mg PO [facility] Stop: 12/06/20 20:59 Last Admin: 11/09/20 20:33 Dose: 25 mg Documented by: Sodium Chloride (Sodium Chloride 0.9% 10ml Flush) 30 ml IV Q24H [facility] Stop: 11/11/20 21:01 Last Admin: 11/09/20 21:36 Dose: 30 ml Documented by: Tramadol HCl (Tramadol Hcl 50 Mg Tablet) 25 - 50 mg PO Q4H PRN PRN Reason: Pain Stop: 12/06/20 00:57 Last Admin: 11/10/20 09:15 Dose: 50 mg Documented by:
[2020-11-10] MEDS: LORazepam 1 MG TAB PO PRN (18:29)
[2020-11-10] MEDS: SERTRALINE HCL 50 MG TABLET PO SCH (20:35)
[2020-11-10] MEDS: MELATONIN 3 MG TAB PO PRN (20:35)
[2020-11-10] MEDS: REMDESIVIR 100 MG in SODIUM CHLORIDE 0.9% 230 ML IV SCH (20:35)
[2020-11-10] MEDS: FAMOTIDINE 40 MG TABLET PO SCH (20:36)
[2020-11-10] MEDS: SODIUM CHLORIDE 0.9% 10ML FLUSH IV SCH (21:38)
[2020-11-11] MEDS: IBUPROFEN 600 MG TAB PO PRN (07:43)
[2020-11-11] MEDS: LORazepam 1 MG TAB PO PRN (07:43)
[2020-11-11 07:54] LABS: Alanine Aminotransferase 19 U/L (12-78); Aspartate Aminotransferase 11 U/L (15-37)
[2020-11-11] MEDS ORDERED: METOPROLOL SUCC 25MG EXT REL TAB PO SCH (09:00)
[2020-11-11 09:48] LABS: Basophils # (auto) 0.02 K/uL (0-0.2); Basophils % (auto) 0.3 %; Eosinophils # (auto) 0.05 K/uL (0-0.5); Eosinophils % (auto) 0.7 %; Hematocrit (blood only) 38.4 % (37-47); Hemoglobin 12.7 g/dL (12.0-16.0); Immature Granulocytes # (auto) 0.07 K/uL (0.00-0.02); Immature Granulocytes % (auto) 0.9 %; Lymphocytes # (auto) 1.89 K/uL (1.2-3.4); Lymphocytes % (auto) 25.1 %; Mean Corpuscular Hgb Conc 33.1 g/dL (32-36); Mean Corpuscular Volume 90.8 fL (80-100); Monocytes # (auto) 0.57 K/uL (0.11-0.59); Monocytes % (auto) 7.6 %; Neutrophils # (auto) 4.94 K/uL (1.4-6.5); Neutrophils % (auto) 65.4 %; Platelet Count 276 K/uL (130-400); RDW Standard Deviation 42.9 fL (36.4-46.3); Red Blood Count 4.23 M/uL (4.2-5.4); White Blood Count 7.54 K/uL (4.8-10.8)
[2020-11-11 09:57] LABS: BUN Creatinine Ratio 23.4 (10-20); Calcium 8.7 mg/dl (8.5-10.1); Est GFR (African American) 116.2; Est GFR (Non-African American) 100.3; Potassium 4.3 mmol/L (3.5-5.1)
[2020-11-11] MEDS: ENOXAPARIN INJ 30 MG/0.3 ML SYR SQ SCH (10:50)
[2020-11-11] MEDS: PANTOprazole 40 MG TAB PO SCH (10:50)
--- NOTE | 2020-11-11 12:47 | Hospitalist Progress Note ---
Date of Service November 11, 2020 Assessment & Plan (1) Pneumonia due to COVID-19 virus: Biofire repeat was positive for COVID. Finish the course of remdesivir . Initially started on intravenous ceftriaxone and doxycycline for possible bacterial pneumonia but those were discontinued subsequently. Could not tolerate dexamethasone and declined convalescent plasma Denies any symptoms except generalized weakness Ready to be discharged home this afternoon Advised to have repeat chest x-ray in 4 to 6 weeks as a follow-up (2) Hypoxia: 2/2 covid pneumonia-resolved. (3) Diarrhea: likely 2/2 viral etiology. Imodium PRN, oral rehydration with Powerade and IVF. No more diarrhea (4) Headache: Reoccurrence today which is making her feel too ill for discharge home, Ibuprofen PRN (5) Anxiety: Cont sertraline per home regimen. Steroids stopped as these are having side effects for her. (6) DVT prophylaxis: Lovenox Full Code Will be discharged this afternoon Admission and Anticipated Discharge Date Admission Date: November 05, 2020 Subjective The patient was seen and examined in Covid unit She was admitted on 05 November last year with COVID-19 pneumonia She finished a course of remdesivir and could not tolerate any dexamethasone She has been feeling a lot better today Complains to have some weakness but no shortness of breath at rest and on minimal exertion She denies any other symptoms Review of Systems Review of Systems: All systems reviewed and are unremarkable except as noted below Neurologic: + generalized weakness Physical Exam Physical Exam: Sitting at the edge of the bed without any acute distress Constitutional: well developed and well nourished; no acute distress and not ill appearing Eyes: PERRL, conjunctivae normal, anicteric sclerae ENMT: external ear and nose normal, oropharynx normal Neck: trachea midline, no thyromegaly Respiratory: normal respiratory effort; no respiratory distress Auscultation: lungs clear to auscultation bilaterally Cardiovascular: Rate/Rhythm: regular rate and regular rhythm Heart Sounds: no murmur Gastrointestinal (Abdomen): Inspection/Auscultation: abdomen normal to inspection and normal bowel sounds Percussion/Palpation: abdomen soft; abdomen nontender Musculoskeletal: No acute arthritis in any joint Neurologic: Alert, awake and oriented x3. Remains generally weak and lethargic.no focal sensory and motor deficit appreciated Psychiatric: A+Ox3, euthymic affect Lymphatic: no cervical or axillary lymphadenopathy Results & Data Results & Data ([facility]) Vital Signs (Past 12 Hours) Vital Signs Temp Pulse Resp BP Pulse Ox 11/11/20 07:38 36.7 C 64 20 105/69 93 Laboratory Results Short CBC 11/11/20 Range/Units 06:34 WBC 7.54 (4.8-10.8) K/uL Hgb 12.7 (12.0-16.0) g/dL Hct 38.4 (37-47) % Plt Count 276 (130-400) K/uL BMP 11/11/20 06:34 Sodium 140 Potassium 4.3 Chloride 108 H Carbon Dioxide 28 BUN 15 Creatinine 0.63 Glucose 100 H Calcium 8.7 Liver Function 11/11/20 Range/Units 06:30 AST 11 L (15-37) U/L ALT 19 (12-78) U/L Medications Administered Current Inpatient Medications Acetaminophen (Acetaminophen 325 Mg Tab) 650 mg PO Q4H PRN PRN Reason: Pain or Fever Stop: 12/06/20 00:57 Last Admin: 11/11/20 10:56 Dose: 650 mg Documented by: Albuterol (Albut/Ipratrop 3mg/0.5mg Neb 3 Ml Vial) 3 ml NEB Q2H PRN PRN Reason: Wheezing Stop: 12/06/20 00:57 Enoxaparin Sodium (Enoxaparin Inj 30 Mg/0.3 Ml Syr) 30 mg SQ QAM [facility] Stop: 12/06/20 08:59 Last Admin: 11/11/20 10:50 Dose: 30 mg Documented by: Famotidine (Famotidine 40 Mg Tablet) 40 mg PO HS [facility] Stop: 12/06/20 20:59 Last Admin: 11/10/20 20:36 Dose: 40 mg Documented by: Promethazine HCl 6.25 mg/ (Sodium Chloride) 50.25 mls @ 201 mls/hr IV Q6H PRN PRN Reason: Nausea And Vomiting Stop: 12/06/20 00:57 Remdesivir 100 mg/ Sodium (Chloride) 250 mls @ 250 mls/hr IV Q24H [facility]; Protocol Stop: 11/11/20 20:59 Last Infusion: 11/10/20 21:38 Dose: Infused Documented by: Ibuprofen (Ibuprofen 600 Mg Tab) 600 mg PO Q8H PRN PRN Reason: pain/headache/fever Stop: 12/07/20 15:43 Last Admin: 11/11/20 07:43 Dose: 600 mg Documented by: Loperamide HCl (Loperamide Hcl 2 Mg Cap) 2 mg PO UD PRN PRN Reason: Loose Stool Stop: 12/06/20 15:41 Last Admin: 11/06/20 16:43 Dose: 2 mg Documented by: Lorazepam (Lorazepam 1 Mg Tab) 1 mg PO TID PRN PRN Reason: Anxiety Stop: 12/06/20 01:40 Last Admin: 11/11/20 07:43 Dose: 1 mg Documented by: Melatonin (Melatonin 3 Mg Tab) 3 mg PO HS PRN PRN Reason: Sleep Stop: 12/09/20 21:04 Last Admin: 11/10/20 20:35 Dose: 3 mg Documented by: Metoprolol Succinate (Metoprolol Succ 25mg Ext Rel Tab) 12.5 mg PO QAM [facility] Stop: 12/11/20 08:59 Last Admin: 11/11/20 10:50 Dose: 12.5 mg Documented by: Pantoprazole Sodium (Pantoprazole 40 Mg Tab) 40 mg PO QAM [facility]AN[facility] Stop: 12/06/20 08:59 Last Admin: 11/11/20 10:50 Dose: 40 mg Documented by: Sertraline HCl (Sertraline Hcl 50 Mg Tablet) 25 mg PO HS [facility]AN[facility] Stop: 12/06/20 20:59 Last Admin: 11/10/20 20:35 Dose: 25 mg Documented by: Sodium Chloride (Sodium Chloride 0.9% 10ml Flush) 30 ml IV Q24H [facility]AN[facility] Stop: 11/11/20 21:01 Last Admin: 11/10/20 21:38 Dose: 30 ml Documented by: Tramadol HCl (Tramadol Hcl 50 Mg Tablet) 25 - 50 mg PO Q4H PRN PRN Reason: Pain Stop: 12/06/20 00:57 Last Admin: 11/10/20 20:35 Dose: 50 mg Documented by:
--- NOTE | 2020-11-12 11:13 | Discharge Summary ---
Date of Service November 12, 2020 Admission HPI Per Admitting Provider History obtained from patient and records. Medical history significant for hypertension, GERD, IBS, anxiety/mood disorder, chronic pain as per records, past tobacco abuse. 5 days history of cough symptoms productive of greenish sputum followed by achy generalized abdominal pain with nausea, emesis, diarrhea, loss of taste and smell. Bothersome reflux as per patient. Achy headache symptoms. No known recent COVID-19 contacts. Denies aspiration. O2 sats noted to be 80s at some point at the ER. Decadron, ceftriaxone, and azithromycin given at the ER for pneumonia. Medical History as above Surgical History : Carpal tunnel surgery, BTL, nasal surgery, knee surgery, cholecystectomy, hernia repair Family History : Hypertension Personal/Social history : Past tobacco abuse, no EtOH intake, disabled Admission Exam Per Admitting Provider Physical Exam: GENERAL: Slightly uncomfortable, no respiratory distress SKIN: Normal color, warm HEENT: Bespectacled, pink palpebral conjunctivae, no ptosis, dry buccal mucosa NECK : Supple, no tenderness, nasal cannula in place CHEST : Decreased breath sounds, occasional expiratory wheezes, no tenderness HEART : Bradycardic, no obvious murmurs ABDOMEN: Some distention, minimal epigastric tenderness EXTREMITIES : No LE swelling/tenderness, no other conspicuous deformities noted NEUROLOGIC : Coherent, no facial asymmetry, no other gross focality Principal Diagnosis Pneumonia due to COVID-19 virus infection Discharge Exam Constitutional well developed and well nourished; no acute distress and not ill appearing Eyes PERRL, conjunctivae normal, anicteric sclerae ENMT external ear and nose normal, oropharynx normal Neck trachea midline, no thyromegaly Respiratory normal respiratory effort; no respiratory distress Auscultation: lungs clear to auscultation bilaterally Cardiovascular Rate/Rhythm: regular rate and regular rhythm Heart Sounds: no murmur Gastrointestinal (Abdomen) Inspection/Auscultation: abdomen normal to inspection and normal bowel sounds Percussion/Palpation: abdomen soft; abdomen nontender Psychiatric A+Ox3, euthymic affect Lymphatic no cervical or axillary lymphadenopathy Discharge Data Allergies Allergy/AdvReac Type Severity Reaction Status Date / Time No Known Allergies Allergy Unverified 01/29/17 10:17 Consultations 11/05/20 22:34 ED Decision to Admit Stat Ordered Studies 11/05/20 20:36 CT abd pelvis IV con only Stat CT angio chest PE protocol Stat 11/05/20 20:45 CT head/brain wo con Stat Hospital Course (1) Pneumonia due to COVID-19 virus: Biofire repeat was positive for COVID. Finish the course of remdesivir . Initially started on intravenous ceftriaxone and doxycycline for possible bacterial pneumonia but those were discontinued subsequently. Could not tolerate dexamethasone and declined convalescent plasma Denies any symptoms except generalized weakness Ready to be discharged home this afternoon Advised to have repeat chest x-ray in 4 to 6 weeks as a follow-up (2) Hypoxia: 2/2 covid pneumonia-resolved. (3) Diarrhea: likely 2/2 viral etiology. Imodium PRN, oral rehydration with Powerade and IVF. No more diarrhea (4) Headache: Reoccurrence today which is making her feel too ill for discharge home, Ibuprofen PRN (5) Anxiety: Cont sertraline per home regimen. Steroids stopped as these are having side effects for her. (6) DVT prophylaxis: Lovenox Full Code Will be discharged this afternoon Total Time Total Time Spent Total Time Spent (In Minutes): 35 minutes Total Time Includes: Examination of the Patient, Discharge Planning, Medication Reconciliation and Communication With Other Providers Discharge Plan Discharge Items Patient Disposition: Home - Self-Care Reason For Visit: RESP FAILURE Discharge Diagnosis: Pneumonia due to COVID-19 virus infection Condition on Discharge: Good Activity: As commented below Activity Comment: Take it easy for the next few days Non-emergency contact: Primary Care Provider Call non-emergency contact if: you have any medication questions and your symptoms worsen Follow-up/Referrals: Martell Garibay MD [Primary Care Provider] - (Date & Time 11/13/2020 3:40 PM Provider Kamilla Licnoln MD Department [facility] PLEASE NOTE THAT THIS IS A TELEVIDEO APPOINTMENT. PLEASE FOLLOW THE INSTRUCTIONS PROVIDED IN YOUR EMAIL. IF YOU HAVE ANY QUESTIONS OR WOULD LIKE TO CHANGE TO A TELEPHONE APPOINMENT, PLEASE CALL .) Diet: Regular Addtl Attending Provider Instructions: Please take preventive measures as advised for complete duration of 10 days Follow instructions as per CDC guideline as below: Home Isolation COVID-19 Instructions The following information about Home Isolation is from the CDC Website: https://www.cdc.gov/coronavirus/2019-ncov/hcp/esduufhz-kysquzz-tzsukz.html Stay home except to get medical care People who are mildly ill with COVID-19 are able to isolate at home during their illness. You should restrict activities outside your home, except for getting medical care. Do not go to work, school, or public areas. Avoid using public transportation, ride-sharing, or taxis. Separate yourself from other people and animals in your home People: As much as possible, you should stay in a specific room and away from other people in your home. Also, you should use a separate bathroom, if available. Animals: You should restrict contact with pets and other animals while you are sick with COVID-19, just like you would around other people. Although there have not been reports of pets or other animals becoming sick with COVID-19, it is still recommended that people sick with COVID-19 limit contact with animals until more information is known about the virus. When possible, have another member of your household care for your animals while you are sick. If you are sick with COVID-19, avoid contact with your pet, including petting, snuggling, being kissed or licked, and sharing food. If you must care for your pet or be around animals while you are sick, wash your hands before and after you interact with pets and wear a face mask. Call ahead before visiting your doctor If you have a medical appointment, call the healthcare provider and tell them that you have or may have COVID-19. This will help the healthcare providers office take steps to keep other people from getting infected or exposed. Wear a face mask You should wear a face mask when you are around other people (e.g., sharing a room or vehicle) or pets and before you enter a healthcare providers office. If you are not able to wear a face mask (for example, because it causes trouble breathing), then people who live with you should not stay in the same room with you, or they should wear a face mask if they enter your room. Cover your coughs and sneezes Cover your mouth and nose with a tissue when you cough or sneeze. Throw used tissues in a lined trash can. Immediately wash your hands with soap and water for at least 20 seconds or, if soap and water are not available, clean your hand s with an alcohol-based hand director of anesthesia services that contains at least 60% alcohol. Clean your hands often Wash your hands often with soap and water for at least 20 seconds, especially after blowing your nose, coughing, or sneezing; going to the bathroom; and before eating or preparing food. If soap and water are not readily available, use an alcohol-based hand director of anesthesia services with at least 60% alcohol, covering all surfaces of your hands and rubbing them together until they feel dry. Soap and water are the best option if hands are visibly dirty. Avoid touching your eyes, nose, and mouth with unwashed hands. Avoid sharing personal household items You should not share dishes, drinking glasses, cups, eating utensils, towels, or bedding with other people or pets in your home. After using these items, they should be washed thoroughly with soap and water. Clean all high-touch surfaces everyday High touch surfaces include counters, tabletops, doorknobs, bathroom fixtures, toilets, phones, keyboards, tablets, and bedside tables. Also, clean any surfaces that may have blood, stool, or body fluids on them. Use a household cleaning spray or wipe, according to the label instructions. Labels contain instructions for safe and effective use of the cleaning product including precautions you should take when applying the product, such as wearing gloves and making sure you have good ventilation during use of the product. Monitor your symptoms Seek prompt medical attention if your illness is worsening (e.g., difficulty breathing).Beforeseeking care, call your healthcare provider and tell them that you have, or are being evaluated for, COVID-19. Put on a face mask before y ou enter the facility. These steps will help the healthcare providers office to keep other people in the office or waiting room from getting infected or exposed. Ask your healthcare provider to call the local or state health department. Persons who are placed under active monitoring or facilitated self- monitoring should follow instructions provided by their local health department or occupational health professionals, as appropriate. When working with your local health department check their available hours. If you have a medical emergency and need to call 911, notify the dispatch personnel that you have, or are being evaluated for COVID-19. If possible, put on a face mask before emergency medical services arrive. Discontinuing home isolation Patients with confirmed COVID-19 should remain under home isolation precautions until the risk of secondary transmission to others is thought to be low. The decision to discontinue home isolation precautions should be made on a adps-yr-fmic basis, in consultation with healthcare providers and state and local health departments. Pending Studies at Discharge: No Stand-Alone Forms: [facility], Smoking Cessation Medications and DC Order Prescriptions: Continued prednisone 10 mg tablet See Rx Instructions .ROUTE .COMPLEX RF: 0 famotidine 40 mg tablet 40 mg PO HS RF: 0 pantoprazole 40 mg tablet,delayed release (DR/EC) 40 mg PO QAM RF: 0 sertraline 25 mg tablet 25 mg PO HS RF: 0 metoprolol succinate 25 mg tablet extended release 24 hr 25 mg PO DAILY RF: 0 lorazepam 1 mg tablet 1 mg PO TID PRN (Reason: Anxiety) RF: 0 Discharge Orders: Discharge Order (Routine); Ordered 11/11/20 Ordered By: Mattie Corado/Other Patient Handouts: Preventing the Spread of ..., How COVID-19 Spreads Admission Data Admit Date/Time: 11/05/20 23:25 Attending Provider: Mattie Balbuena Admit Provider: Kristopher Barnes Primary Care Provider: Martell Garibay Other Providers: Kristopher Barnes ; Savita Cabrera Other Interventions: Discharge Summary Assessment (RN) Last Done: 11/11/20 13:36
== END 2020-11-11 17:04 | disposition home or self-care (01) | DRG 177 ==
LOC: ED 20:27 → 2W 23:25 → SUATTDRO 23:25 → 2W 11-06 00:29 → 3E 11-07 17:23